=== PATIENT | female | born 1995 | race Caucasian/White ===

== ENCOUNTER 2016-08-17 12:37 | Emergency (ER) | payer OTHER, MEDICAID ==
[2016-08-17] MEDS ORDERED: ONDANSETRON 4 MG TAB.RAPDIS PO ONE (14:06)
[2016-08-17] MEDS ORDERED: NORMAL SALINE 1000 ML 1,000 ML IV ONE (14:06)
--- NOTE | 2016-08-17 14:07 | ER Document Report ---
ED Medical Screen (RME) - General Chief Complaint: Vomiting Stated Complaint: VOMITING,HEAD PAIN TRAVEL OUTSIDE OF THE [place] IN LAST 30 DAYS: No - HPI Notes: 08/17/16 14:07 Nausea vomiting abdominal pain. States son 7 months at home has similar symptoms. 08/17/16 14:07 - Related Data Allergies/Adverse Reactions: No Known Allergies Allergy (Verified 08/17/16 12:55) Past Medical History Renal/ Medical History: Denies: Hx Peritoneal Dialysis - Immunizations Hx Diphtheria, Pertussis, Tetanus Vaccination: Yes Review of Systems - Review of Systems Gastrointestinal: Abdominal pain, Nausea, Vomiting Physical Exam - Vital signs Vitals: Temp Pulse Resp BP Pulse Ox 98.2 F 106 H 14 118/72 98 08/17/16 12:55 08/17/16 12:55 08/17/16 12:55 08/17/16 12:55 08/17/16 12:55 - Respiratory Respiratory status: No respiratory distress Chest status: Nontender Breath sounds: Normal Course - Vital Signs Vital signs: Temp Pulse Resp BP Pulse Ox 98.2 F 106 H 14 118/72 98 08/17/16 12:55 08/17/16 12:55 08/17/16 12:55 08/17/16 12:55 08/17/16 12:55
[2016-08-17] MEDS ORDERED: DIPHENHYDRAMINE HCL 50 MG/ML VIAL IV ONE (14:44)
[2016-08-17] MEDS ORDERED: METOCLOPRAMIDE HCL INJ/PF 10 MG/2 ML SDV IV ONE (14:44)
--- NOTE | 2016-08-17 14:52 | ER Document Report ---
ED General - General Chief Complaint: Vomiting Stated Complaint: VOMITING,HEAD PAIN Time Seen by Provider: 08/17/16 14:07 Mode of Arrival: Ambulatory Information source: Patient Notes: 21-year-old female presents to the emergency room with nausea, vomiting and watery diarrhea. Patient states her 7-month-old had similar symptoms 3 days ago when she started developing symptoms 2 days ago. Patient denies any fever, abdominal pain, blood in the stool. His cough, shortness of breath, chest pain or dysuria TRAVEL OUTSIDE OF THE [place] IN LAST 30 DAYS: No - HPI Onset: Last week Onset/Duration: Gradual Quality of pain: Cramping Severity: None Pain Level: Denies Associated symptoms: denies: Chills, Fever, Shortness of breath Exacerbated by: Denies Relieved by: Denies Similar symptoms previously: No Recently seen / treated by doctor: No - Related Data Allergies/Adverse Reactions: No Known Allergies Allergy (Verified 08/17/16 12:55) Past Medical History - General Information source: Patient - Social History Smoking Status: Never Smoker Cigarette use (# per day): No Chew tobacco use (# tins/day): No Frequency of alcohol use: None Drug Abuse: None Lives with: Family Family History: Reviewed & Not Pertinent Patient has suicidal ideation: No Patient has homicidal ideation: No - Medical History Medical History: Negative Renal/ Medical History: Denies: Hx Peritoneal Dialysis Surgical Hx: Negative - Immunizations Hx Diphtheria, Pertussis, Tetanus Vaccination: Yes Review of Systems - Review of Systems Constitutional: denies: Chills, Fever EENT: No symptoms reported Cardiovascular: No symptoms reported Respiratory: No symptoms reported Gastrointestinal: See HPI, Diarrhea, Nausea, Vomiting. denies: Abdominal pain, Constipation, Blood in vomit, Fecal incontinence Genitourinary: No symptoms reported Female Genitourinary: No symptoms reported Musculoskeletal: No symptoms reported Skin: No symptoms reported Hematologic/Lymphatic: No symptoms reported Neurological/Psychological: No symptoms reported Physical Exam - Vital signs Vitals: Temp Pulse Resp BP Pulse Ox 98.2 F 106 H 14 118/72 98 08/17/16 12:55 08/17/16 12:55 08/17/16 12:55 08/17/16 12:55 08/17/16 12:55 Notes: Physical exam: GENERAL: 1-year-old female, alert and oriented 3, no acute distress HEAD: Atraumatic, normocephalic. EYES: Pupils equal round and reactive to light, extraocular movements intact, sclera anicteric, conjunctiva are normal. ENT: TMs normal, nares patent, oropharynx clear without exudates. Moist mucous membranes. NECK: Normal range of motion, supple without lymphadenopathy or JVD. LUNGS: Breath sounds clear to auscultation bilaterally and equal. No wheezes rales or rhonchi. HEART: Regular rate and rhythm without murmurs, rubs or gallops. ABDOMEN: Soft, normoactive bowel sounds. No tenderness to palpation. No guarding, no rebound. No masses appreciated. EXTREMITIES: Normal range of motion, no pitting or edema. No clubbing or cyanosis. NEUROLOGICAL: Cranial nerves II through XII grossly intact. Normal speech, normal gait. PSYCH: Normal mood, normal affect. SKIN: Warm, Dry, normal turgor, no rashes or lesions noted. Course - Re-evaluation Re-evalutation: 08/17/16 17:33 Patient given IV fluids, Reglan, Benadryl. She is feeling much better. - Vital Signs Vital signs: Temp Pulse Resp BP Pulse Ox 98.2 F 98 18 111/68 100 08/17/16 12:55 08/17/16 17:29 08/17/16 17:29 08/17/16 17:29 08/17/16 17:29 - Laboratory Result Diagrams: 08/17/16 14:16 08/17/16 14:16 Laboratory results interpreted by me: 08/17/16 14:16 WBC 10.6 H Seg Neutrophils % 89.1 H Lymphocytes % 7.2 L Absolute Neutrophils 9.4 H Discharge - Discharge Clinical Impression: vomiting with nausea Condition: Stable Instructions: Nausea or Vomiting, Nonspecific ([facility]), Reglan ([facility]) Additional Instructions: Recommendations: Take medicine as prescribed for nausea and vomiting. Drink small amounts of fluid often, advance diet slowly. Return to the emergency room for worsening vomiting, inability to tolerate fluids, feeling faint, or concerns it or getting worse. Follow-up with your physician within the next two days. If you are unable to get inn to see your physician, return to the ER for evaulation. Prescriptions: Metoclopramide HCl [Reglan 10 mg Tablet] 1 - 2 tab PO ASDIR PRN #25 tablet PRN Reason:
[2016-08-17 14:53] LABS: ABSOLUTE EOSINOPHILS # (AUTO) 0.1 10^3/uL (0.0-0.6); ABSOLUTE LYMPHOCYTES (AUTO) 0.8 10^3/uL (0.5-4.7); ABSOLUTE MONOCYTES (AUTO) 0.3 10^3/uL (0.1-1.4); ABSOLUTE NEUT (AUTO) 9.4 10^3/uL (1.7-8.2); BASOPHILS % (AUTO) 0.2 % (0-2); EOSINOPHILS % (AUTO) 0.5 % (0-6); HEMATOCRIT 44.2 % (36.0-47.0); HEMOGLOBIN 14.6 g/dL (12.0-15.5); HGB HCT DIFFERENCE -0.4; LYMPHOCYTES % (AUTO) 7.2 % (13-45); MEAN CORPUSCULAR HEMOGLOBIN 28.4 pg (27.0-33.4); MEAN CORPUSCULAR VOLUME 86 fl (80-97); RED BLOOD COUNT 5.12 10^6/uL (3.72-5.28); RED CELL DISTRIBUTION WIDTH 13.5 % (11.5-14.0); SEGMENTED NEUTROPHILS % (AUTO) 89.1 % (42-78); WHITE BLOOD COUNT 10.6 10^3/uL (4.0-10.5)
--- NOTE | 2016-08-17 14:59 | RADIOLOGY REPORT (SQ) ---
EXAM DESCRIPTION: ACUTE ABDOMEN SERIES COMPLETED DATE/TIME: 08/17/2016 2:41 pm REASON FOR STUDY: n/v/d COMPARISON: 02/06/2016 NUMBER OF VIEWS: Three views. TECHNIQUE: PA chest, supine abdomen and upright/decubitus abdomen radiographic images acquired. LIMITATIONS: None. FINDINGS: CHEST: Lungs clear of infiltrates. FREE AIR: None. No abnormal gas collections. BOWEL GAS PATTERN: Few scattered small bowel loops with air fluid levels. No distended large or small bowel loops. CALCIFICATIONS: No suspicious calcifications. HARDWARE: None in the abdomen. SOFT TISSUES: No gross mass or suggestion of organomegaly. BONES: No acute fracture. No worrisome bone lesions. OTHER: No other significant finding. IMPRESSION: NONSPECIFIC BOWEL GAS PATTERN WITHOUT EVIDENCE FOR OBSTRUCTION. TECHNICAL DOCUMENTATION: JOB ID: [id number] [employer]- All Rights Reserved
[2016-08-17 15:10] LABS: ANION GAP 13 (5-19); BLOOD UREA NITROGEN 18 mg/dL (7-20); CALCIUM 9.2 mg/dL (8.4-10.2); CARBON DIOXIDE 23 mmol/L (22-30); CHLORIDE 103 mmol/L (98-107); CREATININE RESULT 0.71 mg/dL (0.52-1.25); GLUCOSE 94 mg/dL (75-110); POTASSIUM 4.9 mmol/L (3.6-5.0); SODIUM 139.4 mmol/L (137-145)
[2016-08-17] MEDS ORDERED: NORMAL SALINE 1000 ML 1,000 ML IV PRN (16:21)
[2016-08-17 17:05] LABS: APPEARANCE,URINE CLEAR; BILIRUBIN,URINE NEGATIVE (NEGATIVE); GLUCOSE, URINE NEGATIVE (NEGATIVE); KETONES,URINE NEGATIVE (NEGATIVE); LEUKOCYTE ESTERASE,URINE NEGATIVE (NEGATIVE); NITRITE,URINE NEGATIVE (NEGATIVE); PROTEIN,URINE NEGATIVE (NEGATIVE); URINE SPECIFIC GRAVITY 1.013; UROBILINOGEN,URINE NEGATIVE mg/dL (<2.0)
[2016-08-17 17:13] LABS: RBC,URINE NONE SEEN /HPF; WBC,URINE 0-1 /HPF
[2016-08-17 17:14] LABS: BACTERIA,URINE TRACE /HPF
[2016-08-17 17:31] VITALS: BP 111/68
== END 2016-08-17 17:43 | disposition home or self-care (01) ==
LOC: ER 12:37
DX: R11.2 Nausea with vomiting, unspecified (principal); R19.7 Diarrhea, unspecified; R51 Headache
CPT/HCPCS: 99284; 96374; 96375; 36415; 84702; 85025; 80048; 81001; 74022; J1200; J2765; J7030

== ENCOUNTER 2017-03-09 01:16 | Emergency (ER) | payer OTHER, MEDICAID ==
[2017-03-09 01:29] VITALS: BP 122/74
[2017-03-09] MEDS ORDERED: ONDANSETRON HCL INJ/PF 4 MG/2 ML SDV IV ONE (02:19)
[2017-03-09] MEDS ORDERED: ACETAMINOPHEN 325 MG TABLET PO ONE (02:19)
[2017-03-09] MEDS ORDERED: NORMAL SALINE 1000 ML 1,000 ML IV ONE (02:19)
[2017-03-09 03:02] LABS: ANION GAP 13 (5-19); BLOOD UREA NITROGEN 8 mg/dL (7-20); CALCIUM 9.6 mg/dL (8.4-10.2); CARBON DIOXIDE 22 mmol/L (22-30); CHLORIDE 106 mmol/L (98-107); GLUCOSE 89 mg/dL (75-110); POTASSIUM 3.9 mmol/L (3.6-5.0); SODIUM 140.7 mmol/L (137-145)
--- NOTE | 2017-03-09 03:42 | RADIOLOGY REPORT (SQ) ---
EXAM DESCRIPTION: First trimester obstruction ultrasound. CLINICAL HISTORY: 22 years Female, abdominal pain in COMPARISON: None. TECHNIQUE: Complete transabdominal first trimester obstetrical ultrasound. FINDINGS: Uterus measures 11.00 x 8.4 x 8.4 cm. Within the endometrial canal there is a gestational sac. The crown-rump length is 3.1 cm compatible with an estimated gestational age of 10 weeks, 0 days. The gestational sac has a grossly normal appearance. cardiac activity of 150 bpm. No myometrial masses. Cervical length of 3.3 cm. No free pelvic fluid identified. The right ovary is not identified. The left ovary measures 5.0 x 3.0 x 3.3 cm. Limited color and spectral Doppler images demonstrate flow within the left ovary. IMPRESSION: Single live intrauterine with estimated gestational age of 10 weeks, 0 days. heart rate of 150 bpm.
--- NOTE | 2017-03-09 04:38 | ER Document Report ---
ED General - General Chief Complaint: Abdominal Pain Stated Complaint: ABDOMINAL PAIN Time Seen by Provider: 03/09/17 02:14 Notes: Patient is 22-year-old female. She is approximately 12 weeks . She has seen POSTDOCTORAL FELLOW doctor but has not yet had an ultrasound to confirm IUP status. She has had some vomiting throughout her . Over last day or 2 she has noticed some cramping type pain in her bilateral lower abdomen. No abnormal discharge or bleeding. She is Rh-. She denies any fevers. Denies diarrhea. She has no other complaints at this time. TRAVEL OUTSIDE OF THE [place] IN LAST 30 DAYS: No - Related Data Allergies/Adverse Reactions: No Known Allergies Allergy (Verified 03/09/17 01:25) Past Medical History - Social History Smoking Status: Never Smoker Frequency of alcohol use: None Drug Abuse: None Family History: Reviewed & Not Pertinent Patient has suicidal ideation: No Patient has homicidal ideation: No Renal/ Medical History: Denies: Hx Peritoneal Dialysis - Immunizations Hx Diphtheria, Pertussis, Tetanus Vaccination: Yes Review of Systems - Review of Systems Notes: My Normal Review Basic REVIEW OF SYSTEMS: CONSTITUTIONAL : Denies fever, chills, or sweats. Denies recent illness. EENT: Denies eye, ear, throat, or mouth pain or symptoms. Denies nasal or sinus congestion. RESPIRATORY: Denies cough, cold, or chest congestion. Denies shortness of breath, difficulty breathing, or wheezing. GASTROINTESTINAL: Lateral lower Rampey abdominal pain. Denies nausea, vomiting , or diarrhea. Denies constipation. Last BM: GENITOURINARY: Denies difficulty urinating, painful urination, burning, frequency, or blood in urine. FEMALE GENITOURINARY: Denies vaginal bleeding, abnormal or irregular periods. LMP: Currently MUSCULOSKELETAL: Denies neck or back pain or joint pain or swelling. SKIN: Denies rash or skin lesions. NEUROLOGICAL: Denies altered mental status or loss of consciousness. Has a headache. Denies weakness or paralysis or loss of use of either side. Denies problems with gait or speech. Denies sensory or motor loss. ALL OTHER SYSTEMS REVIEWED AND NEGATIVE. Physical Exam - Vital signs Vitals: Temp Pulse Resp BP Pulse Ox 97.7 F 95 18 122/74 98 03/09/17 01:21 03/09/17 01:21 03/09/17 01:21 03/09/17 01:21 03/09/17 01:21 - Notes Notes: General Appearance: Well nourished, alert, cooperative, no acute distress, no obvious discomfort. Well appearing. Vitals: reviewed, See vital signs table. Eyes: PERRL, EOMI, Conjuctiva clear Lungs: No wheezing, No rales, No rhonci, No accessory muscle use, good air exchange bilaterally. Heart: Normal rate, Regular rythm, No murmur, no rub Abdomen: Normal BS, soft, No rigidity, No reproducible abdominal tenderness to palpation, No guarding, no rebound, Extremities: strength 5/5 in all extremities, good pulses in all extremities, no swelling or tenderness in the extremities, no edema. Skin: warm, dry, appropriate color, no rash Neuro: speech clear, oriented x 3, normal affect, responds appropriately to questions. Course - Re-evaluation Re-evalutation: 03/10/17 05:24 Patient is feeling much improved after IV fluids. She does have a new tract infection. This may be contributing to the cramping that she is having. She has no current bleeding. She looks well. I feel she is safe to be discharged home. We will place her on antibiotic for UTI. I strongly encouraged her follow-up closely with her freezer machine operator. Patient encouraged to return to ER if she has worsening pain, any vaginal bleeding, or she feels unwell. Patient agrees with plan and will be discharged home. Dictation of this chart was performed using voice recognition software; therefore, there may be some unintended grammatical errors. - Vital Signs Vital signs: Temp Pulse Resp BP Pulse Ox 97.7 F 95 18 122/74 98 03/09/17 01:21 03/09/17 01:21 03/09/17 01:21 03/09/17 01:21 03/09/17 01:21 - Laboratory Result Diagrams: 03/09/17 02:30 Laboratory results interpreted by me: 03/09/17 03:39 Urine Ketones TRACE H Urine Nitrite POSITIVE H Urine Urobilinogen 2.0 H Ur Leukocyte Esterase TRACE H Discharge - Discharge Clinical Impression: Abdominal pain during Qualifiers: Trimester: first trimester Qualified Code(s): O26.891 - Other specified related conditions, first trimester Vomiting Qualifiers: Vomiting type: unspecified Vomiting Intractability: non-intractable Nausea presence: with nausea Qualified Code(s): R11.2 - Nausea with vomiting, unspecified UTI (urinary tract infection) Qualifiers: Urinary tract infection type: site unspecified Hematuria presence: without hematuria Qualified Code(s): N39.0 - Urinary tract infection, site not specified Condition: Good Disposition: HOME, SELF-CARE Additional Instructions: Please take the antibiotic as prescribed. please return to the ER immediately if you have fevers, worsening pain, intractable vomiting, vaginal bleeding, or feel unwell. Plesae follow up with your OB doctor in 3-5 days. I have prescribed Reglan. This is a nausea medicine that is safe in . Please take a vitamin every day. Prescriptions: Metoclopramide HCl [Reglan 10 mg Tablet] 1 tab PO ASDIR PRN #25 tablet PRN Reason: Nitrofurantoin/Nitrofuran Mac [Macrobid 100 mg Capsule] 1 tab PO BID #20 capsule
[2017-03-09 04:46] LABS: APPEARANCE,URINE SLIGHTLY-CLOUDY; BILIRUBIN,URINE NEGATIVE (NEGATIVE); COLOR,URINE YELLOW; GLUCOSE, URINE NEGATIVE (NEGATIVE); KETONES,URINE TRACE mg/dL (NEGATIVE); LEUKOCYTE ESTERASE,URINE TRACE (NEGATIVE); NITRITE,URINE POSITIVE (NEGATIVE); PROTEIN,URINE NEGATIVE (NEGATIVE); URINE SPECIFIC GRAVITY 1.028
[2017-03-09] MEDS ORDERED: NITROFURANTOIN MONOHYD/M-CRYST 100 MG CAPSULE PO ONE (04:58)
== END 2017-03-09 05:02 | disposition home or self-care (01) ==
LOC: ER 01:16
DX: O26.891 Other specified pregnancy related conditions, first trimester (principal); R10.9 Unspecified abdominal pain; O23.41 Unspecified infection of urinary tract in pregnancy, first trimester; O21.9 Vomiting of pregnancy, unspecified; Z3A.12 12 weeks gestation of pregnancy
CPT/HCPCS: 99284; 96374; 36415; 87086; 87088; 80048; 81001; 87186; 76817; 93976; J2405; J7030

== ENCOUNTER 2017-04-29 00:05 | Emergency (ER) | payer OTHER, MEDICAID ==
[2017-04-29 00:14] VITALS: BP 116/68
[2017-04-29] MEDS ORDERED: ACETAMINOPHEN 325 MG TABLET PO ONE (01:34)
--- NOTE | 2017-04-29 01:39 | ER Document Report ---
ED General - General Chief Complaint: Knee Pain Stated Complaint: KNEE PAIN Time Seen by Provider: 04/29/17 01:24 Notes: Patient is a pleasant 22-year-old female who presents with complaint of pain in her left knee. She says the pain is just superior to the patella. She says she has had pain off and on both her left knee and right knee for many years. She says the left knee is usually worse. She says over the last couple weeks it has become more painful. She is currently . She says she has noticed that she is gaining weight with the pain is been worse. She also has a 1-year-old at home that she is "currently chasing around the house". She denies any injuries or trauma. No fevers. No redness to the knee. Patient's other complaint is that she had dysuria several days ago. She took [id number] Azo and the symptoms have gone away but she is unsure if actually treated the urinary tract infection. She has not had any fevers or vomiting. No pain in her abdomen. No abnormal vaginal discharge or bleeding. Patient's final complaint is that she had a small ingrown hair in the suprapubic region. She removed in 1 to make sure that the site looks okay. She says she is not currently taking multivitamins or vitamins on a daily basis because they make her feel nauseous. I did talk to her length about the importance of taking vitamins as it contributes to preventing the development of neuro tube defects. TRAVEL OUTSIDE OF THE [place] IN LAST 30 DAYS: No - Related Data Allergies/Adverse Reactions: No Known Allergies Allergy (Verified 03/09/17 01:25) Past Medical History - Social History Smoking Status: Unknown if Ever Smoked Frequency of alcohol use: None Drug Abuse: None Family History: Reviewed & Not Pertinent Renal/ Medical History: Denies: Hx Peritoneal Dialysis - Immunizations Hx Diphtheria, Pertussis, Tetanus Vaccination: Yes Review of Systems - Review of Systems Notes: My Normal Review Basic REVIEW OF SYSTEMS: CONSTITUTIONAL : Denies fever, chills, or sweats. Denies recent illness. RESPIRATORY: Denies cough, cold, or chest congestion. Denies shortness of breath, difficulty breathing, or wheezing. GASTROINTESTINAL: Denies abdominal pain. Denies nausea, vomiting, or diarrhea. GENITOURINARY: Had some dysuria FEMALE GENITOURINARY: Denies vaginal bleeding, abnormal or irregular periods. LMP: currently MUSCULOSKELETAL: left knee pain SKIN: Denies rash or skin lesions. NEUROLOGICAL: Denies altered mental status or loss of consciousness. Denies headache. Denies weakness or paralysis or loss of use of either side. Denies problems with gait or speech. Denies sensory or motor loss. ALL OTHER SYSTEMS REVIEWED AND NEGATIVE. Physical Exam - Vital signs Vitals: Temp Pulse Resp BP Pulse Ox 98.0 F 76 16 116/68 100 04/29/17 00:09 04/29/17 00:09 04/29/17 00:09 04/29/17 00:09 04/29/17 00:09 - Notes Notes: General Appearance: Well nourished, alert, cooperative, no acute distress, mild obvious discomfort. Vitals: reviewed, See vital signs table. Extremities: strength 5/5 in all extremities, good pulses in all extremities, some tenderness to palpation over the suprapatellar ligament. The remainder of the knee is completely nontender. No significant swelling to the knee with the exception of possibly some very mild swelling just superior to the patella.. No redness. No warmth. Skin: warm, dry, appropriate color, no rash. Patient has a small area where the patient removed an ingrown hair over suprapubic region. There is no spreading or surrounding redness or fluctuance or sign of developing abscess. Neuro: speech clear, oriented x 3, normal affect, responds appropriately to questions. Course - Re-evaluation Re-evalutation: 04/29/17 06:47 Patient's knee pain seems consistent with maybe suprapatellar tendinitis. Pain is only over the suprapatellar tendon. Appears that this is a chronic ongoing pain is worsened since she become . Told her to take Tylenol for pain and I did give her crutches. I will have her follow-up with orthopedist. She also had some dysuria the last couple days. Urinalysis does show positive nitrites and therefore placed on Keflex. I talked her the importance of taking vitamins. I informed her to return to ER immediately if she has worsening pain, redness or increased swelling to the knee, fevers, vomiting, or she feels unwell. Patient agrees with plan will be discharged home. Dictation of this chart was performed using voice recognition software; therefore, there may be some unintended grammatical errors. - Vital Signs Vital signs: Temp Pulse Resp BP Pulse Ox 98.0 F 76 16 116/68 100 04/29/17 00:09 04/29/17 00:09 04/29/17 00:09 04/29/17 00:09 04/29/17 00:09 - Laboratory Laboratory results interpreted by me: 04/29/17 01:50 Urine Nitrite POSITIVE H Urine Urobilinogen 2.0 H Discharge - Discharge Clinical Impression: Knee pain, left Qualifiers: Chronicity: unspecified Qualified Code(s): M25.562 - Pain in left knee UTI (urinary tract infection) Qualifiers: Urinary tract infection type: site unspecified Hematuria presence: without hematuria Qualified Code(s): N39.0 - Urinary tract infection, site not specified Condition: Good Disposition: HOME, SELF-CARE Additional Instructions: Please take the antibiotic as prescribed for the urinary tract infection. please follow up closely with your OB doctor in 3-4 days for reevaluation and recheck of your urine to make sure it is improving. please use the crutches as often as possible to give your knee a rest. Please take Tylenol for pain. Please follow up with your doctor in 1 week for reevaluation of your knee. Please take vitamins. Please get a neoprene knee brace from the store and wear it for support of your knee. If your knee continues to bother you I have included the number to Dr. Hayden, orthopedist, for close follow up appointment. Prescriptions: Cephalexin Monohydrate [Keflex 500 mg Capsule] 500 mg PO BID 5 Days #10 capsule Referrals: SHILOH PACE MD [Primary Care Provider] - Follow up in 3-5 days WARREN POMPA MD [ACTIVE STAFF] - Follow up in 1 week
[2017-04-29 02:12] LABS: APPEARANCE,URINE SLIGHTLY HAZY; BILIRUBIN,URINE NEGATIVE (NEGATIVE); COLOR,URINE YELLOW; GLUCOSE, URINE NEGATIVE (NEGATIVE); KETONES,URINE NEGATIVE (NEGATIVE); LEUKOCYTE ESTERASE,URINE NEGATIVE (NEGATIVE); NITRITE,URINE POSITIVE (NEGATIVE); PROTEIN,URINE NEGATIVE (NEGATIVE); URINE SPECIFIC GRAVITY 1.021
[2017-04-29] MEDS ORDERED: CEPHALEXIN 500 MG CAPSULE PO ONE (02:18)
== END 2017-04-29 03:00 | disposition home or self-care (01) ==
LOC: ER 00:05
DX: O99.89 Other specified diseases and conditions complicating pregnancy, childbirth and the puerperium (principal); M25.562 Pain in left knee; O23.40 Unspecified infection of urinary tract in pregnancy, unspecified trimester; Z3A.00 Weeks of gestation of pregnancy not specified
CPT/HCPCS: 81001; 87086; 87088; 87186; 99283

== ENCOUNTER 2017-05-13 22:46 | Emergency (ER) | payer OTHER, MEDICAID ==
[2017-05-13 22:51] VITALS: BP 100/57
--- NOTE | 2017-05-13 23:42 | ER Document Report ---
ED Allergic Reaction - General Chief Complaint: Allergic Reaction Stated Complaint: POSSIBLE ALLERGIC REACTION Time Seen by Provider: 05/13/17 23:31 Mode of Arrival: Ambulatory TRAVEL OUTSIDE OF THE [place] IN LAST 30 DAYS: No - HPI Patient complains to provider of: RASH Notes: Patient is here with complaints of rash. States that the rash is been present for the last 4 days. It is itchy. It is located on her abdomen back arms and legs. She denies any new soaps, detergents, lotions, medications. No new foods. She is 19 weeks . She denies any complications or complaints at this time. She does have occasional nausea vomiting associated with her , this has not changed. She denies any fever. No sore throat. No cough. No abdominal pain. She did recently stay in a hotel but states that no one else that stayed in hotel has similar symptoms. No one else that she has been around has similar rash. - Related Data Allergies/Adverse Reactions: No Known Allergies Allergy (Verified 03/09/17 01:25) Past Medical History - Social History Smoking Status: Unknown if Ever Smoked Family History: Reviewed & Not Pertinent Patient has suicidal ideation: No Patient has homicidal ideation: No Renal/ Medical History: Denies: Hx Peritoneal Dialysis - Immunizations Hx Diphtheria, Pertussis, Tetanus Vaccination: Yes Review of Systems - Review of Systems -: Yes All other systems reviewed and negative Physical Exam - Vital signs Vitals: Temp Pulse Resp BP Pulse Ox 97.7 F 84 16 100/57 L 99 05/13/17 22:50 05/13/17 22:50 05/13/17 22:50 05/13/17 22:50 05/13/17 22:50 - Notes Notes: GENERAL: alert, cooperative, nontoxic, no distress. HEAD: normocephalic, atraumatic EYES: conjunctiva pink without discharge, no external redness or swelling. EARS: no external swelling, no external redness NOSE: atraumatic, no external swelling MOUTH/THROAT: mucous membranes moist and pink NECK: soft, supple, full range of motion, no meningismus. CHEST: no distress, lungs clear and equal throughout. No wheezing, rales, rhonchi. CARDIAC: regular rate and rhythm, no murmur, normal capillary refill, normal pulses. BACK: full range of motion, no CVA tenderness. EXTREMITIES: full range of motion of all extremities. No redness, no swelling. NEURO: alert and oriented 3, no focal deficits, full range of motion of all extremities. PYSCH: appropriate mood, affect. Patient is cooperative. SKIN: pink, warm, dry, nonspecific papular rash with excoriated areas from scratching to the abdomen, back, arms, upper legs. No surrounding erythema. No vesicles. No petechiae. Course - Re-evaluation Re-evalutation: 05/13/17 23:40 Patient is nontoxic appearing with stable vitals. Patient is a very nonspecific itchy rash to her abdomen, arms, legs. Looks to be possibly allergic in nature. She will be discharged home with instructions to take Benadryl as needed for itching. Follow-up with her WOOD HEEL FLAP RUBBER if not improving in the next 3-5 days, and to follow-up sooner for worsening rash, high fever, difficulty breathing or swallowing, persistent vomiting, abdominal pain, or for any further concerns. - Vital Signs Vital signs: Temp Pulse Resp BP Pulse Ox 97.7 F 84 16 100/57 L 99 05/13/17 22:50 05/13/17 22:50 05/13/17 22:50 05/13/17 22:50 05/13/17 22:50 Discharge - Discharge Clinical Impression: Dermatitis Condition: Stable Disposition: HOME, SELF-CARE Instructions: Topical Steroid Cream or Ointment ([facility]) Additional Instructions: Take [id number] Benadryl as needed for itching. Follow-up with your OB/ BIOLOGY LECTURER if not better in the next 3-5 days. Follow-up sooner for worsening rash, high fever, difficulty breathing or swallowing, abdominal pain, persistent vomiting, or for any further concerns.
== END 2017-05-13 23:46 | disposition home or self-care (01) ==
LOC: ER 22:46
DX: O26.92 Pregnancy related conditions, unspecified, second trimester (principal); L30.9 Dermatitis, unspecified; Z3A.19 19 weeks gestation of pregnancy
CPT/HCPCS: 99283

== ENCOUNTER 2017-06-10 16:26 | Emergency (ER) | payer MEDICAID ==
[2017-06-10 16:32] VITALS: BP 111/62
--- NOTE | 2017-06-10 16:46 | ER Document Report ---
ED Medical Screen (RME) - General Chief Complaint: Rash Stated Complaint: POSSIBLE RASH Time Seen by Provider: 06/10/17 16:42 Notes: 22-year-old female, 23 weeks , presents from her OB office with concern for a possible pelvic fracture and 1 month of a pruritic full-body rash. Patient said she had a fall last week and now hears crunching when she walks. Patient has tried calamine lotion, cortisone cream, permethrin and Benadryl without much relief of her itchy rash. PE: NAD. Non-tender abdomen. Unable to visualize rash in PIT. I have greeted and performed a rapid initial assessment of this patient. A comprehensive ED assessment and evaluation of the patient, analysis of test results and completion of the medical decision making process will be conducted by additional ED providers. TRAVEL OUTSIDE OF THE [place] IN LAST 30 DAYS: No - Related Data Allergies/Adverse Reactions: No Known Allergies Allergy (Verified 03/09/17 01:25) Past Medical History - Social History Chew tobacco use (# tins/day): No Frequency of alcohol use: None Drug Abuse: None Renal/ Medical History: Denies: Hx Peritoneal Dialysis - Immunizations Hx Diphtheria, Pertussis, Tetanus Vaccination: Yes Physical Exam - Vital signs Vitals: Temp Pulse Resp BP Pulse Ox 97.9 F 92 16 111/62 98 06/10/17 16:30 06/10/17 16:30 06/10/17 16:30 06/10/17 16:30 06/10/17 16:30 Course - Vital Signs Vital signs: Temp Pulse Resp BP Pulse Ox 97.9 F 92 16 111/62 98 06/10/17 16:30 06/10/17 16:30 06/10/17 16:30 06/10/17 16:30 06/10/17 16:30 Doctor's Discharge - Discharge Referrals: EVELIN OWENS MD [Primary Care Provider] - Follow up as needed
[2017-06-10 17:52] LABS: APPEARANCE,URINE CLOUDY; BILIRUBIN,URINE NEGATIVE (NEGATIVE); GLUCOSE, URINE NEGATIVE (NEGATIVE); KETONES,URINE NEGATIVE (NEGATIVE); LEUKOCYTE ESTERASE,URINE MODERATE (NEGATIVE); NITRITE,URINE NEGATIVE (NEGATIVE); PROTEIN,URINE 30 mg/dL (NEGATIVE); URINE SPECIFIC GRAVITY 1.034
[2017-06-10 17:53] LABS: COLOR,URINE DARK YELLOW
[2017-06-10 17:57] LABS: ALANINE AMINOTRANSFERASE 25 U/L (9-52); ALBUMIN 3.5 g/dL (3.5-5.0); ALKALINE PHOSPHATASE 68 U/L (38-126); ANION GAP 7 (5-19); ASPARTATE AMINO TRANSFERASE 11 U/L (14-36); BILIRUBIN,DIRECT 0.2 mg/dL (0.0-0.4); BILIRUBIN,TOTAL 0.2 mg/dL (0.2-1.3); BLOOD UREA NITROGEN 8 mg/dL (7-20); CALCIUM 9.4 mg/dL (8.4-10.2); CARBON DIOXIDE 26 mmol/L (22-30); CHLORIDE 104 mmol/L (98-107); GLUCOSE 87 mg/dL (75-110); POTASSIUM 4.7 mmol/L (3.6-5.0); SODIUM 136.9 mmol/L (137-145); TOTAL PROTEIN 6.4 g/dL (6.3-8.2)
[2017-06-10] MEDS ORDERED: CLINDAMYCIN HCL 150 MG CAPSULE PO ONE (19:01)
--- NOTE | 2017-06-10 19:06 | ER Document Report ---
ED General - General Chief Complaint: Rash Stated Complaint: POSSIBLE RASH Time Seen by Provider: 06/10/17 16:42 Notes: Patient is a 22-year-old female who presents with 2 complaints. Her first complaint is a diffuse, painful, pruritic rash over her back, buttock, bilateral forearms and groin region. Rash is described as being a burning, throbbing, itching pain. Nothing improves or worsens the pain. Patient states that she was treated for possible scabies with permethrin cream and this did not improve. She was also treated for possible allergic reaction and likewise this did not improve her symptoms. She describes the areas as having a pustule and then they typically open and scab over. She denies a history of similar symptoms in the past. She denies any associated fever or constitutional symptoms. She also complains of intermittent cracking or popping when she moves around in the region of her pubic symphysis. She states that there is an associated mild, throbbing, intermittent pain. She denies any difficulty walking, ranging her hips or standing. She has no history of similar symptoms in the past. She was referred to the emergency department today by the health department for further assessment. TRAVEL OUTSIDE OF THE [place] IN LAST 30 DAYS: No - Related Data Allergies/Adverse Reactions: No Known Allergies Allergy (Verified 03/09/17 01:25) Past Medical History - General Information source: Patient - Social History Smoking Status: Never Smoker Chew tobacco use (# tins/day): No Frequency of alcohol use: None Drug Abuse: None Lives with: Family Family History: Reviewed & Not Pertinent Patient has suicidal ideation: No Patient has homicidal ideation: No Renal/ Medical History: Denies: Hx Peritoneal Dialysis - Immunizations Hx Diphtheria, Pertussis, Tetanus Vaccination: Yes Review of Systems - Review of Systems Notes: Constitutional: Negative for fever. HENT: Negative for sore throat. Eyes: Negative for visual changes. Cardiovascular: Negative for chest pain. Respiratory: Negative for shortness of breath. Gastrointestinal: Negative for abdominal pain, vomiting or diarrhea. Genitourinary: Negative for dysuria. Musculoskeletal: Positive for pubic symphysis pain Skin: Positive for rash. Neurological: Negative for headaches, weakness or numbness. 10 point ROS negative except as marked above and in HPI. Physical Exam - Vital signs Vitals: Temp Pulse Resp BP Pulse Ox 97.9 F 92 16 111/62 98 06/10/17 16:30 06/10/17 16:30 06/10/17 16:30 06/10/17 16:30 06/10/17 16:30 Interpretation: Normal Notes: PHYSICAL EXAMINATION: GENERAL: Well-appearing, well-nourished and in no acute distress. HEAD: Atraumatic, normocephalic. EYES: Pupils equal round and reactive to light, extraocular movements intact, sclera anicteric, conjunctiva are normal. ENT: nares patent, oropharynx clear without exudates. Moist mucous membranes. NECK: Normal range of motion, supple without lymphadenopathy LUNGS: Breath sounds clear to auscultation bilaterally and equal. No wheezes rales or rhonchi. HEART: Regular rate and rhythm without murmurs ABDOMEN: Soft, nontender, normoactive bowel sounds. No guarding, no rebound. No masses appreciated. EXTREMITIES: Normal range of motion, no pitting or edema. No cyanosis. NEUROLOGICAL: No focal neurological deficits. Moves all extremities spontaneously and on command. PSYCH: Normal mood, normal affect. SKIN: Warm, Dry, normal turgor, multiple areas of scabbed over lesions over the forearms, several pustular regions over the bilateral buttocks and low back Course - Re-evaluation Re-evalutation: 06/10/17 19:05 Patient presents with signs and symptoms most consistent with a diffuse staph infection with multiple areas of scabbed over and blistered areas. Patient is ready been treated for possible scabies as well as a possible allergic reaction without any improvement. Especially her buttock region is most consistent with small staph blisters. She will be started on clindamycin as I am unable to use trimethoprim sulfamethoxazole or doxycycline due to her . Regarding patient's pelvic pain: She seems to have some mild tenderness over her pubic symphysis. She has no limited range of motion, no pain or obvious antalgic gait. Patient has agreed to avoid x-ray imaging today. At this time will discharge with return precautions and follow-up recommendations. Verbal discharge instructions given a the bedside and opportunity for questions given. Medication warnings reviewed. Patient is in agreement with this plan and has verbalized understanding of return precautions and the need for primary care follow-up in the next 24-72 hours. - Vital Signs Vital signs: Temp Pulse Resp BP Pulse Ox 97.9 F 92 16 111/62 98 06/10/17 16:30 06/10/17 16:30 06/10/17 16:30 06/10/17 16:30 06/10/17 16:30 - Laboratory Result Diagrams: 06/10/17 17:00 Laboratory results interpreted by me: 06/10/17 06/10/17 17:00 17:00 Sodium 136.9 L AST 11 L Urine Protein 30 H Urine Urobilinogen 2.0 H Ur Leukocyte Esterase MODERATE H Discharge - Discharge Clinical Impression: Staph skin infection, Pelvic pain Condition: Good Disposition: HOME, SELF-CARE Additional Instructions: Your rash is likely due to a scattered staph infection. Please take the clindamycin that has been prescribed for the next 7 days. You may also apply topical bacitracin cream to the most severely affected areas which can be purchased [id number]. Your pelvic pain is likely secondary to some mild irritation of your pubic symphysis and is unlikely to be a fracture. We have agreed to avoid an x-ray today. Please follow-up with her OB as scheduled. Return if you develop fever, persistent vomiting, pass out, have difficulty walking, or have any other symptoms that are worrisome to you. Prescriptions: Clindamycin HCl 300 mg PO TID #21 capsule Referrals: EVELIN OWENS MD [Primary Care Provider] - Follow up as needed
== END 2017-06-10 20:31 | disposition home or self-care (01) ==
LOC: ER 16:26
DX: L08.89 Other specified local infections of the skin and subcutaneous tissue (principal); B95.8 Unspecified staphylococcus as the cause of diseases classified elsewhere
CPT/HCPCS: 99283; 36415; 80053; 81001; J3490

== ENCOUNTER → 2017-06-12 | Outpatient (CLI) | payer MEDICAID ==
--- NOTE | 2017-06-12 16:14 | RADIOLOGY REPORT (SQ) ---
EXAM DESCRIPTION: U/S OB 14+ TRNABD 1GES W/O DOP COMPLETED DATE/TIME: 06/12/2017 3:21 pm REASON FOR STUDY: ENCOUNTER FOR SUPERVISION OF OTHER NORMAL , SECOND TRIMESTER Z34.82 ENCO UNTER FOR SUPRVSN OF NORMAL , SECOND TRI COMPARISON: None. TECHNIQUE: Static and Dynamic grayscale imaging performed of gravid uterus using transabdominal appr oach. Additional selected color Doppler and spectral images recorded. All stored on PACS. LIMITATIONS: None. FINDINGS: EGA: 21 weeks 4 days JOAQUIN: 10/19/2017 EFW: 409 grams PERCENTILE: 12 FERMIN: 11.1 cm PLACENTA: Anterior GRADE: I PRESENTATION: Cephalic. ANATOMY: HEART RATE: 143 beats per minute. FOUR CHAMBER HEART: Visualized. THREE VESSEL CORD: Yes. CORD INSERTION: Visualized. KIDNEYS AND BLADDER: Visualized. Appear normal. STOMACH: Visualized. Appears normal. SPINE: Normal as visualized. BRAIN AND LATERAL VENTRICLES: Visualized. Appear normal. OTHER: No other significant finding. MATERNAL ADNEXA: Maternal ovaries not visualized. CERVICAL LENGTH: 3.4 cm. Closed. OTHER: No other significant finding. IMPRESSION: LIVING INTRAUTERINE . ESTIMATED GESTATIONAL AGE 21 weeks 4 days NO VISUALIZED ANOMALIES. Trimester of : Second trimester - 13 weeks 1 day to 27 weeks 6 days. TECHNICAL DOCUMENTATION: JOB ID: [id number] [employer]- All Rights Reserved Reading location - IP/workstation name: [email or web address]
== END ==
LOC: RAD 13:55
PROVIDERS: ATTEND Nurse Practitioner Women's Health
DX: Z34.82 Encounter for supervision of other normal pregnancy, second trimester (principal)
CPT/HCPCS: 76805

== ENCOUNTER 2017-06-23 01:08 | Emergency (ER) | payer MEDICAID ==
--- NOTE | 2017-06-23 01:49 | ER Document Report ---
ED General - General Chief Complaint: Rash Stated Complaint: SKIN IRRITATION Time Seen by Provider: 06/23/17 01:27 Notes: Patient is a 22-year-old female who is 24 weeks who presents with complaint of a rash. That is her initial complaint. She was actually seen here almost 2 weeks ago for same thing. At that time she was placed on clindamycin. She is the clindamycin is greatly improved her rash but she still has several lesions over her body and says now that she is done with the clindamycin she feels that is no longer improving. She denies any fevers. She denies any vomiting. She had a recent ultrasound which showed that the baby has had down but no complications thus far. This is her second . Her first was a normal vaginal delivery at 34 weeks. She does complain that she started having some white vaginal discharge today. She also has been urinating more. Before she was placed on clindamycin she was treated for scabies by her OB doctor. This did not improve her symptoms. TRAVEL OUTSIDE OF THE [place] IN LAST 30 DAYS: No - Related Data Allergies/Adverse Reactions: No Known Allergies Allergy (Verified 03/09/17 01:25) Past Medical History - Social History Smoking Status: Unknown if Ever Smoked Frequency of alcohol use: None Drug Abuse: None Family History: Reviewed & Not Pertinent Patient has suicidal ideation: No Patient has homicidal ideation: No Renal/ Medical History: Denies: Hx Peritoneal Dialysis - Immunizations Hx Diphtheria, Pertussis, Tetanus Vaccination: Yes Review of Systems - Review of Systems Notes: My Normal Review Basic REVIEW OF SYSTEMS: CONSTITUTIONAL : Denies fever, chills, or sweats. Denies recent illness. EENT: Denies eye, ear, throat, or mouth pain or symptoms. Denies nasal or sinus congestion. CARDIOVASCULAR: Denies chest pain. RESPIRATORY: Denies cough, cold, or chest congestion. Denies shortness of breath, difficulty breathing, or wheezing. GASTROINTESTINAL: Denies abdominal pain. Denies nausea, vomiting, or diarrhea. GENITOURINARY: Dysuria. Some urinary frequency. FEMALE GENITOURINARY: Denies vaginal bleeding. 4 weeks . Some whitish discharge. MUSCULOSKELETAL: Denies neck or back pain or joint pain or swelling. SKIN: Rash NEUROLOGICAL: Denies altered mental status or loss of consciousness. Denies headache. Denies weakness or paralysis or loss of use of either side. Denies problems with gait or speech. Denies sensory or motor loss. ALL OTHER SYSTEMS REVIEWED AND NEGATIVE. Physical Exam - Vital signs Vitals: Temp Pulse Resp BP Pulse Ox 97.3 F 92 16 118/65 98 06/23/17 01:15 06/23/17 01:15 06/23/17 01:15 06/23/17 01:15 06/23/17 01:15 - Notes Notes: General Appearance: Well nourished, alert, cooperative, no acute distress, no obvious discomfort. Well-appearing. Vitals: reviewed, See vital signs table. Head: no swelling or tenderness to the head Eyes: PERRL, EOMI, Conjuctiva clear Mouth: No decreasd moisture Lungs: No wheezing, No rales, No rhonci, No accessory muscle use, good air exchange bilaterally. Heart: Normal rate, Regular rythm, No murmur, no rub Abdomen: Normal BS, soft, No rigidity, No abdominal tenderness, No guarding, no rebound, no abdominal masses, no organomegaly Pelvic exam: Small amount of whitish vaginal discharge. No abnormal appearing discharge. No blood in vaginal vault. Normal external genitalia. Extremities: strength 5/5 in all extremities, good pulses in all extremities, no swelling or tenderness in the extremities, no edema. Skin: Diffuse papular rash that and some spots started to excoriate and seems to be improving. Rash is not painful to palpation. She does say it is pruritic. Neuro: speech clear, oriented x 3, normal affect, responds appropriately to questions. Course - Re-evaluation Re-evalutation: 06/24/17 05:43 I suspect the rash is related to staph infection based on the fact that it improved clindamycin appearance is consistent with that of disseminated type staph infection. I did consider PUPPs as the patient is in third trimester however rash did not really start around areas of striae a and she does not have any lesions that are really consistent with what the typical appearance of PUPPs. Patient clinically looks very well. She is in no distress and is not septic or toxic appearing. I will place on clindamycin for another 7 days. Encouraged her follow-up closely with her OB doctor. Encourage her return to ER if she has worsening her rash, pelvic pain that is increasing, vaginal bleeding, or fevers. Patient agrees with plan and she will be discharged home. Dictation of this chart was performed using voice recognition software; therefore, there may be some unintended grammatical errors. - Vital Signs Vital signs: Temp Pulse Resp BP Pulse Ox 98 F 78 18 128/62 H 98 06/23/17 04:45 06/23/17 04:45 06/23/17 04:45 06/23/17 04:45 06/23/17 04:45 - Laboratory Result Diagrams: 06/23/17 01:50 06/23/17 01:50 Laboratory results interpreted by me: 06/23/17 01:50 WBC 11.2 H Hgb 11.8 L Hct 35.6 L RDW 14.6 H Discharge - Discharge Clinical Impression: Rash Condition: Good Disposition: HOME, SELF-CARE Additional Instructions: Please follow up with your doctor in 2-3 days. I have prescribed another week of the Clindamycin to help continue the remained of your rash. I suspect that your rash is related to a staph infection based on its appearance and the fact that Clindamycin helped it. Please take an over the counter probiotic to help prevent diarrhea being that you are on the antibiotic. Please stop the antibiotic if you develop diarrhea. Please return to the ER immediatly if you develop worsening rash, fevers, vaginal bleeding, contractions, or feel that you are worsening. Prescriptions: Clindamycin HCl 300 mg PO ASDIR #56 capsule Referrals: EVELIN OWENS MD [Primary Care Provider] - Follow up in 3-5 days
[2017-06-23 02:07] LABS: ABSOLUTE EOSINOPHILS # (AUTO) 0.1 10^3/uL (0.0-0.6); ABSOLUTE LYMPHOCYTES (AUTO) 3.1 10^3/uL (0.5-4.7); ABSOLUTE MONOCYTES (AUTO) 0.5 10^3/uL (0.1-1.4); ABSOLUTE NEUT (AUTO) 7.5 10^3/uL (1.7-8.2); BASOPHILS % (AUTO) 0.4 % (0-2); HEMATOCRIT 35.6 % (36.0-47.0); HEMOGLOBIN 11.8 g/dL (12.0-15.5); LYMPHOCYTES % (AUTO) 27.4 % (13-45); MEAN CORPUSCULAR HEMOGLOBIN 29.4 pg (27.0-33.4); MEAN CORPUSCULAR HGB CONC 33.1 g/dL (32.0-36.0); MEAN CORPUSCULAR VOLUME 89 fl (80-97); MONOCYTES % (AUTO) 4.3 % (3-13); PLATELET COUNT 269 10^3/uL (150-450); RED BLOOD COUNT 4.01 10^6/uL (3.72-5.28); RED CELL DISTRIBUTION WIDTH 14.6 % (11.5-14.0); SEGMENTED NEUTROPHILS % (AUTO) 66.9 % (42-78); TOTAL CELLS COUNTED % (AUTO) 100 %; WHITE BLOOD COUNT 11.2 10^3/uL (4.0-10.5)
[2017-06-23 02:21] LABS: ANION GAP 12 (5-19); BLOOD UREA NITROGEN 9 mg/dL (7-20); CARBON DIOXIDE 24 mmol/L (22-30); CHLORIDE 107 mmol/L (98-107); GLUCOSE 92 mg/dL (75-110); POTASSIUM 4.3 mmol/L (3.6-5.0); SODIUM 142.7 mmol/L (137-145)
[2017-06-23 02:57] LABS: BACTERIA (WET MOUNT) 3+ BACTERIA SEEN; RBCS (WET MOUNT) NO RBCS SEEN; T.VAGINALIS (WET MOUNT) NO TRICHOMONAS SEEN; WBCS (WET MOUNT) NO WBCS SEEN; YEAST (WET MOUNT) NO YEAST SEEN
[2017-06-23 04:02] LABS: APPEARANCE,URINE SLIGHTLY-CLOUDY; BILIRUBIN,URINE NEGATIVE (NEGATIVE); COLOR,URINE YELLOW; GLUCOSE, URINE NEGATIVE (NEGATIVE); KETONES,URINE NEGATIVE (NEGATIVE); LEUKOCYTE ESTERASE,URINE NEGATIVE (NEGATIVE); NITRITE,URINE NEGATIVE (NEGATIVE); PROTEIN,URINE NEGATIVE (NEGATIVE); URINE SPECIFIC GRAVITY 1.017; UROBILINOGEN,URINE NEGATIVE mg/dL (<2.0)
[2017-06-23 05:08] VITALS: BP 128/62
== END 2017-06-23 04:45 | disposition home or self-care (01) ==
LOC: ER 01:08
DX: O26.92 Pregnancy related conditions, unspecified, second trimester (principal); R21 Rash and other nonspecific skin eruption; Z3A.24 24 weeks gestation of pregnancy
CPT/HCPCS: 36415; 80048; 81001; 85025; 87210; 99283

== ENCOUNTER 2018-11-20 16:42 | Outpatient (CLI) | payer MEDICAID ==
[2018-11-20 19:01] LABS: HEMATOCRIT 28.4 % (36.0-47.0); HEMOGLOBIN 9.3 g/dL (12.0-15.5); MEAN CORPUSCULAR HEMOGLOBIN 26.4 pg (27.0-33.4); MEAN CORPUSCULAR HGB CONC 32.7 g/dL (32.0-36.0); MEAN CORPUSCULAR VOLUME 81 fl (80-97); PLATELET COUNT 159 10^3/uL (150-450); RED BLOOD COUNT 3.52 10^6/uL (3.72-5.28); RED CELL DISTRIBUTION WIDTH 14.6 % (11.5-14.0); WHITE BLOOD COUNT 8.4 10^3/uL (4.0-10.5)
[2018-11-20 19:09] LABS: BACTERIA (WET MOUNT) 4+ BACTERIA SEEN; EPITHELIALS (WET MOUNT) 4+ EPITHELIALS SEEN; RBCS (WET MOUNT) NO RBCS SEEN; T.VAGINALIS (WET MOUNT) NO TRICHOMONAS SEEN; WBCS (WET MOUNT) 4+ WBCS SEEN; YEAST (WET MOUNT) NO YEAST SEEN
[2018-11-20 19:28] LABS: ABSOLUTE LYMPHOCYTES# (MANUAL) 2.5 10^3/uL (0.5-4.7); ABSOLUTE MONOCYTES # (MANUAL) 0.1 10^3/uL (0.1-1.4); BASOPHILS % (MANUAL) 0 % (0-2); EOSINOPHILS % (MANUAL) 1 % (0-6); LYMPHOCYTES % (MANUAL) 30 % (13-45); MONOCYTES % (MANUAL) 1 % (3-13); SEGMENTED NEUTROPHILS % (MAN) 68 % (42-78); TOTAL CELLS COUNTED 100
[2018-11-20 19:29] LABS: ANISOCYTOSIS SLIGHT; HYPOCHROMASIA SLIGHT; PLATELET COMMENT ADEQUATE
[2018-11-20 19:30] LABS: APPEARANCE,URINE CLOUDY; BILIRUBIN,URINE NEGATIVE (NEGATIVE); GLUCOSE, URINE NEGATIVE (NEGATIVE); KETONES,URINE NEGATIVE (NEGATIVE); LEUKOCYTE ESTERASE,URINE MODERATE (NEGATIVE); NITRITE,URINE POSITIVE (NEGATIVE); PROTEIN,URINE 30 mg/dL (NEGATIVE); URINE SPECIFIC GRAVITY 1.024
[2018-11-20 19:31] LABS: URINE AMPHETAMINES SCREEN NEGATIVE; URINE BARBITURATES SCREEN NEGATIVE; URINE BENZODIAZEPINES SCREEN NEGATIVE; URINE COCAINE SCREEN NEGATIVE; URINE MARIJUANA (THC) SCREEN NEGATIVE; URINE METHADONE SCREEN NEGATIVE; URINE PHENCYCLIDINE SCREEN NEGATIVE
[2018-11-20 19:34] LABS: COLOR,URINE DARK YELLOW
[2018-11-20] MEDS ORDERED: CEFTRIAXONE INJ 1000 MG VIAL IM ONE ×2 (20:03→20:30)
[2018-11-20] MEDS ORDERED: LIDOCAINE 1% INJ-PF (10 MG/ML) 30 ML SDV INJ ONE (20:03)
[2018-11-20] MEDS ORDERED: LIDOCAINE 1% INJ-PF (10 MG/ML) 30 ML SDV ONE (20:18)
[2018-11-20] MEDS ORDERED: CEFTRIAXONE INJ 1000 MG VIAL ONE (20:18)
[2018-11-20 20:25] LABS: CHLAM PCR NOT DETECTED (NOT DETECT)
[2018-11-20] MEDS ORDERED: LIDOCAINE HCL 1% INJ (FOR 1 GM VIAL) INJ ONE (20:30)
[2018-11-20 21:51] LABS: APPEARANCE,URINE CLEAR; BILIRUBIN,URINE NEGATIVE (NEGATIVE); COLOR,URINE STRAW; GLUCOSE, URINE NEGATIVE (NEGATIVE); KETONES,URINE NEGATIVE (NEGATIVE); LEUKOCYTE ESTERASE,URINE SMALL (NEGATIVE); NITRITE,URINE NEGATIVE (NEGATIVE); PROTEIN,URINE NEGATIVE (NEGATIVE); URINE SPECIFIC GRAVITY 1.003; UROBILINOGEN,URINE NEGATIVE mg/dL (<2.0)
--- NOTE | 2018-11-20 23:34 | RADIOLOGY REPORT (SQ) ---
EXAM DESCRIPTION: US BIOPHYSICAL PROFILE WITHOUT NON STRESS TEST COMPLETED DATE/TME: 11/20/2018 22:08 CLINICAL HISTORY: 23 years, Female, non reactive NST COMPARISON: None. TECHNIQUE: LIMITATIONS: None. FINDINGS: There is a single live intrauterine fetus in vertex presentation. cardiac activity was measured at 125 bpm. There is a normal amount of amniotic fluid. The amniotic fluid index is 16.2 cm. The biophysical profile is 8/8. IMPRESSION: The biophysical profile is 8/8. copyright 2010 [employer]- All Rights Reserved
--- NOTE | 2018-11-21 00:53 | Non Stress Test Report ---
Non Stress Test Datetime Report Generated by CPN: 11/21/2018 00:53 DEMOGRAPHIC EGA NST: 37.3 INDICATION Indication for Study: Ordered by Provider URINE RESULTS Urine Protein, NST: Positive Urine Ketones - NST: Negative Urine Glucose - NST: Negative Urine Blood - NST: Negative MONITORING Monitor Explained: Monitor Explained; Test Explained; Patient Verbalized Understanding Time on Monitor: 11/20/2018 17:55 Time off Monitor: 11/20/2018 22:51 NST Duration: 296 NST INTERVENTIONS NST Interventions: PO Hydration; IV Fluids; Meal Given; For Biophysical Profile BABY A: [id number] BABY A Movement : Present Contraction Frequency : irregular FHR Baseline : 155 Accelerations : 10X10 Decelerations : Late; Variable Variability : Moderate 6-25bpm NST Review: Does Not Meet Criteria for Reactive NST NST Review and Verified By : Karel Cason RN NST Results: Non-Reactive NST COMMENTS NST Comments: pt had 8/[address] Daley on unit and reviewed strip before pt had BPP NST REPORT Report Trigger: Send Report
[2018-11-22 07:37] LABS: HEPATITIS C VIRUS AB <0.1 s/co ratio (0.0-0.9)
[2018-11-23 13:13] LABS: HEPATITS B SURFACE ANTIGEN Negative (Negative)
== END 2018-11-20 23:45 | disposition home or self-care (01) ==
LOC: LC 16:42
PROVIDERS: ATTEND Obstetrics & Gynecology
PROC: 4A1HXCZ Monitoring of Products of Conception, Cardiac Rate, External Approach (ICD-10-PCS; principal; 2018-11-20)
DX: O36.8330 Maternal care for abnormalities of the fetal heart rate or rhythm, third trimester, not applicable or unspecified (principal); O47.1 False labor at or after 37 completed weeks of gestation; Z3A.37 37 weeks gestation of pregnancy
CPT/HCPCS: 59025; 86900; 86901; 36415; 87086; 87210; 86850; 85025; 87088; 86762; 86592; 81001; 87340; 86701; 87186; 80307; 87491; 87591; 86803; 86804; 84112; 76819; J3490; J0696

== ENCOUNTER 2018-12-04 13:48 | Outpatient (CLI) | payer MEDICAID ==
[2018-12-04 14:49] LABS: APPEARANCE,URINE CLEAR; BILIRUBIN,URINE NEGATIVE (NEGATIVE); COLOR,URINE YELLOW; GLUCOSE, URINE NEGATIVE (NEGATIVE); KETONES,URINE NEGATIVE (NEGATIVE); LEUKOCYTE ESTERASE,URINE TRACE (NEGATIVE); NITRITE,URINE NEGATIVE (NEGATIVE); PROTEIN,URINE NEGATIVE (NEGATIVE); URINE SPECIFIC GRAVITY 1.013; UROBILINOGEN,URINE NEGATIVE mg/dL (<2.0)
[2018-12-04 15:15] LABS: URINE AMPHETAMINES SCREEN NEGATIVE; URINE BARBITURATES SCREEN NEGATIVE; URINE BENZODIAZEPINES SCREEN NEGATIVE; URINE COCAINE SCREEN NEGATIVE; URINE MARIJUANA (THC) SCREEN NEGATIVE; URINE METHADONE SCREEN NEGATIVE; URINE PHENCYCLIDINE SCREEN NEGATIVE
--- NOTE | 2018-12-04 15:30 | RADIOLOGY REPORT (SQ) ---
EXAM DESCRIPTION: U/S OB LIMITED COMPLETED DATE/TIME: 12/04/2018 3:16 pm REASON FOR STUDY: need dating US please,FERMIN/SDP COMPARISON: 11/20/2018 TECHNIQUE: Limited transabdominal grayscale ultrasound for evaluation of specific requested obstetri kashmir parameters. LIMITATIONS: None. FINDINGS: CERVICAL LENGTH: Not measured. Closed. FERMIN: 16.8 cm. FHR: 143 beats per minute. PRESENTATION: Cephalic. PLACENTA: Fundal ANATOMY: Not assessed OTHER: 37 week 5 day gestation. IMPRESSION: LIMITED OBSTETRICAL ULTRASOUND WITH MEASURED PARAMETERS DELINEATED ABOVE. Trimester of : Third trimester - 28 weeks to delivery. TECHNICAL DOCUMENTATION: JOB ID: [id number] [employer]- All Rights Reserved Reading location - IP/workstation name: [email or web address]
[2018-12-04] MEDS ORDERED: DEXTROSE 5%-LACTATED RINGERS 1,000 ML IV PRN (15:32)
--- NOTE | 2018-12-04 18:36 | RADIOLOGY REPORT (SQ) ---
EXAM DESCRIPTION: U/S PROFILE W/O STRESS COMPLETED DATE/TIME: 12/04/2018 6:23 pm REASON FOR STUDY: BPP COMPARISON: None. TECHNIQUE: Limited rl-scale realtime and static images of the fetus to measure specified parameter s. LIMITATIONS: None. FINDINGS: HEART RATE: 143 beats per minute. FERMIN: Largest measured pocket 10.5 cm. BREATHING MOVEMENT: 0 points. MOVEMENT: 2 points. POSTURE AND TONE: 2 points. QUALITATIVE FERMIN: 2 points. OTHER: No other significant finding. IMPRESSION: BIOPHYSICAL PROFILE: 08/01. Trimester of : Third - 28 weeks to delivery COMMENT: BREATHING MOVEMENTS: 2 POINTS: PRESENT 0 POINTS: ABSENT MOTION: 2 POINTS: PRESENT 0 POINTS: ABSENT TONE: 2 POINTS: PRESENT 0 POINTS: ABSENT AMNIOTIC FLUID VOLUME: 2 POINTS: LARGEST POCKET GREATER THAN 2 CM DEPTH. 0 POINTS: NO POCKET OF 2 CM. TECHNICAL DOCUMENTATION: JOB ID: [id number] [employer]- All Rights Reserved Reading location - IP/workstation name: [email or web address]
--- NOTE | 2018-12-04 19:11 | Non Stress Test Report ---
Non Stress Test Datetime Report Generated by CPN: 12/04/2018 19:11 DEMOGRAPHIC EGA NST: 39.3 INDICATION Indication for Study: Ordered by Provider VITAL SIGNS Temperature - NST: 98.3 Pulse - NST: 86 RESP - NST: 20 NBPSYS NST: 118 NBPDIA NST: 74 MONITORING Monitor Explained: Monitor Explained; Test Explained; Patient Verbalized Understanding Time on Monitor: 12/04/2018 13:52 Time off Monitor: 12/04/2018 19:00 NST Duration: 308 NST INTERVENTIONS NST Interventions: PO Hydration; IV Fluids Physician Notified NST: Dr Giles BABY A: [id number] BABY A Movement : Present Contraction Frequency : occasional FHR Baseline : 135 Accelerations : 15X15 Decelerations : None Variability : Moderate 6-25bpm NST Review and Verified By : SAutry NST Results: Reactive NST REPORT Report Trigger: Send Report
== END 2018-12-04 19:00 | disposition home or self-care (01) ==
LOC: LC 13:48
PROVIDERS: ATTEND Student in an Organized Health Care Education/Training Program
PROC: 4A1HXCZ Monitoring of Products of Conception, Cardiac Rate, External Approach (ICD-10-PCS; principal; 2018-12-04)
DX: O47.1 False labor at or after 37 completed weeks of gestation (principal); Z3A.39 39 weeks gestation of pregnancy
CPT/HCPCS: 59025; 76815; 76819; 80307; 81005; 82962; 84112; 87081

== ENCOUNTER 2018-12-12 03:17 | Inpatient (IN) | payer MEDICAID ==
[2018-12-12] MEDS ORDERED: RINGERS SOLUTION,LACTATED 1,000 ML IV PRN (03:49)
[2018-12-12] MEDS ORDERED: OXYTOCIN 10 UNIT/ML VIAL ONE (03:53)
[2018-12-12] MEDS ORDERED: LIDOCAINE 1% INJ-PF (10 MG/ML) 30 ML SDV ONE (03:54)
[2018-12-12] MEDS ORDERED: MISOPROSTOL 0.2 MG TABLET ONE (03:54)
[2018-12-12] MEDS ORDERED: OXYTOCIN/NORMAL SALINE 20 UNIT/1,000 ML RTUINJ ONE (03:54)
[2018-12-12] MEDS ORDERED: AMPICILLIN SOD INJ 2 GM VIAL ONE (04:30)
[2018-12-12 04:52] LABS: ABSOLUTE BASOPHILS # (AUTO) 0.1 10^3/uL (0.0-0.2); ABSOLUTE LYMPHOCYTES (AUTO) 2.7 10^3/uL (0.5-4.7); ABSOLUTE MONOCYTES (AUTO) 0.4 10^3/uL (0.1-1.4); ABSOLUTE NEUT (AUTO) 6.4 10^3/uL (1.7-8.2); BASOPHILS % (AUTO) 0.5 % (0-2); EOSINOPHILS % (AUTO) 0.3 % (0-6); HEMATOCRIT 31.7 % (36.0-47.0); LYMPHOCYTES % (AUTO) 28.6 % (13-45); MEAN CORPUSCULAR HEMOGLOBIN 24.7 pg (27.0-33.4); MEAN CORPUSCULAR HGB CONC 31.5 g/dL (32.0-36.0); MEAN CORPUSCULAR VOLUME 79 fl (80-97); MONOCYTES % (AUTO) 3.8 % (3-13); PLATELET COUNT 182 10^3/uL (150-450); RED BLOOD COUNT 4.04 10^6/uL (3.72-5.28); RED CELL DISTRIBUTION WIDTH 15.4 % (11.5-14.0); SEGMENTED NEUTROPHILS % (AUTO) 66.8 % (42-78); TOTAL CELLS COUNTED % (AUTO) 100 %; WHITE BLOOD COUNT 9.6 10^3/uL (4.0-10.5)
[2018-12-12] MEDS: IBUPROFEN 800 MG TABLET PO SCH ×3 (05:25→23:00)
[2018-12-12] MEDS ORDERED: IBUPROFEN 800 MG TABLET ONE (05:30)
[2018-12-12] MEDS ORDERED: DIPHENHYDRAMINE HCL 25 MG CAPSULE PO PRN (05:36)
[2018-12-12] MEDS ORDERED: MEASLES,MUMPS&RUBELLA VACC/PF 0.5 ML VIAL SUBCUT PRN (05:36)
[2018-12-12] MEDS ORDERED: ACETAMINOPHEN 650 MG SUPP.RECT PR PRN (05:36)
[2018-12-12] MEDS ORDERED: ZOLPIDEM TARTRATE 5 MG TABLET PO PRN (05:36)
[2018-12-12] MEDS ORDERED: PROMETHAZINE HCL 25 MG SUPP.RECT PR PRN (05:36)
[2018-12-12] MEDS ORDERED: PSEUDOEPHEDRINE HCL 30 MG TABLET PO PRN (05:36)
[2018-12-12] MEDS ORDERED: PROMETHAZINE HCL INJ 25 MG/1 ML VIAL IV PRN (05:36)
[2018-12-12] MEDS ORDERED: DIPH/PERTUSS(ACELL)/TETANUS VAC/PF 0.5 ML SYR (>=10YO) IM PRN (05:36)
[2018-12-12] MEDS ORDERED: BENZOCAINE/MENTHOL AEROSOL SPRAY 56 ML TOP PRN (05:36)
[2018-12-12] MEDS ORDERED: GLYCERIN/WITCH HAZEL LEAF 1 EACH MED..WIPE TP PRN (05:36)
[2018-12-12] MEDS ORDERED: MAGNESIUM HYDROXIDE SUSP 30 ML UDCUP PO PRN (05:36)
[2018-12-12] MEDS ORDERED: OXYTOCIN/NORMAL SALINE 20 UNIT/1,000 ML RTUINJ IV PRN (05:36)
[2018-12-12] MEDS ORDERED: DIBUCAINE 1% OINTMENT 56 GM TP PRN (05:36)
[2018-12-12] MEDS ORDERED: NA PHOS,M-B/NA PHOS,DI-BA (ADULT) 133 ML ENEMA PR PRN (05:36)
--- NOTE | 2018-12-12 05:48 | Admission Physical ---
Datetime Report Generated by CPN: 12/12/2018 05:48 CURRENT ADMISSION Chief Complaint: Uterine Contractions Indication for Induction: Not Applicable Admit Impression : Term, Intrauterine ; Active Labor Admit Plan: Admit to Unit; Initiate Labor Protocol ALLERGIES Medication Allergies: No Medication Allergies: No Known Allergies (12/04/2018) Latex: No Latex Allergies OBSTETRICAL HISTORY EDC: 12/08/2018 00:00 : 3 Para: 2 Livin Gestational Diabetes: No Rh Sensitization: No Incompetent Cervix: No MARCOS: No Infertility: No ART Treatment: No Uterine Anomaly: No IUGR: No Hx Previous C/S: No Macrosomia: No Hx Loss/Stillborn: No PIH: No Hx : No Placenta Previa/Abruption: No Depression/PP Depression: No PTL/PROM: No Post Hemorrhage: No Current Procedures: Ultrasound Obstetrical History Comments: G1- 2015, 34 , NVD G2- 2017, 40, NVD G3- Current SEE RECORDS Alcohol: No Marijuana : No Cocaine: No Other Illicit Drugs: No Cigarettes: Former Smoker. 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: No Heart Disease: No Hosp/Surgery: Yes Autoimmune Disorder: No Anesthetic Complications: No Kidney Disease: Yes Abnormal Pap Smear: No Neuro/Epilepsy: No Psychiatric Disorders: No Other Medical Diseases: No Hepatitis/Liver Disease: No Significant Family History: No Varicosities/Phlebitis: No Trauma/Violence : No Thyroid Dysfunction: No INFECTIOUS HISTORY Gonorrhea: No Genital Herpes: No Chlamydia: No Tuberculosis: No Syphilis: No Hepatitis: No HIV/AIDS Exposure: No Rash or Viral Illness: No HPV: No PHYSICAL EXAM General: Normal HEENT: Normal Neurologic: Normal Thyroid: Normal Heart: Normal Lungs: Normal Breast: Deferred Back: Normal Abdomen: Normal Genitourinary Exam: Normal Extremities: Normal DTRs: Normal Pelvic Type: Adequate Vital Signs: Reviewed VAGINAL EXAM Dilatation: 8 Effacement: 90 Station: -2 MEMBRANES Pooling: Positive Membranes: Ruptured FETUS A EGA: 40.4 Monitoring: External US FHR- Baseline: 140 Variability: Moderate 6-25bpm Decelerations: None FHR Category: Category I Presentation: Vertex PLANS FOR LABOR AND DELIVERY Labor and Delivery: None Pain Management: Epidural Feeding Preference: Breast Benefit of Breast Feed Discussed: Yes Circumcision: N/A INFORMED CONSENT Signature: with User ID: [email or web address]
[2018-12-12 05:58] LABS: APPEARANCE,URINE SLIGHTLY-CLOUDY; BILIRUBIN,URINE NEGATIVE (NEGATIVE); COLOR,URINE YELLOW; GLUCOSE, URINE NEGATIVE (NEGATIVE); KETONES,URINE NEGATIVE (NEGATIVE); LEUKOCYTE ESTERASE,URINE SMALL (NEGATIVE); NITRITE,URINE NEGATIVE (NEGATIVE); PROTEIN,URINE NEGATIVE (NEGATIVE); URINE SPECIFIC GRAVITY 1.012; UROBILINOGEN,URINE NEGATIVE mg/dL (<2.0)
[2018-12-12 06:16] LABS: URINE AMPHETAMINES SCREEN NEGATIVE; URINE BARBITURATES SCREEN NEGATIVE; URINE BENZODIAZEPINES SCREEN NEGATIVE; URINE COCAINE SCREEN NEGATIVE; URINE MARIJUANA (THC) SCREEN NEGATIVE; URINE METHADONE SCREEN NEGATIVE; URINE PHENCYCLIDINE SCREEN NEGATIVE
[2018-12-12] MEDS ORDERED: ACETAMINOPHEN WITH CODEINE #3 TABLET ONE (06:57)
[2018-12-12] MEDS: ACETAMINOPHEN WITH CODEINE #3 TABLET PO PRN ×3 (06:58→19:54)
[2018-12-12] MEDS ORDERED: PRENATAL VITAMIN W DHA CAPSULE PO ONE (10:38)
[2018-12-12] MEDS ORDERED: SENNOSIDES/DOCUSATE 8.6-50 MG 1 EACH TABLET ONE (10:38)
[2018-12-12] MEDS ORDERED: DOCUSATE SODIUM 100 MG CAPSULE ONE (10:39)
[2018-12-12] MEDS ORDERED: FERROUS SULFATE 325 MG TABLET PO ONE (10:39)
[2018-12-12] MEDS: DOCUSATE SODIUM 100 MG CAPSULE PO SCH ×2 (10:41→17:52)
[2018-12-12] MEDS: FERROUS SULFATE 325 MG TABLET PO SCH ×2 (10:41→17:52)
[2018-12-12] MEDS: PRENATAL VITAMIN W DHA CAPSULE PO SCH (10:41)
[2018-12-12] MEDS: SENNOSIDES/DOCUSATE 8.6-50 MG 1 EACH TABLET PO SCH (10:41)
[2018-12-12] MEDS ORDERED: MORPHINE SULFATE 10 MG/ML INJ ONE (11:13)
[2018-12-12] MEDS: FAMOTIDINE 20 MG TABLET PO SCH ×2 (17:48→23:00)
[2018-12-12] MEDS: PROMETHAZINE HCL 25 MG TABLET PO PRN (23:13)
[2018-12-13] MEDS: PROMETHAZINE HCL 25 MG TABLET PO PRN (03:41)
[2018-12-13] MEDS: ACETAMINOPHEN WITH CODEINE #3 TABLET PO PRN ×2 (03:41→17:54)
[2018-12-13] MEDS: IBUPROFEN 800 MG TABLET PO SCH ×3 (05:56→21:38)
[2018-12-13 08:08] LABS: HEMATOCRIT 27.9 % (36.0-47.0); MEAN CORPUSCULAR HEMOGLOBIN 25.5 pg (27.0-33.4); MEAN CORPUSCULAR HGB CONC 32.4 g/dL (32.0-36.0); MEAN CORPUSCULAR VOLUME 79 fl (80-97); PLATELET COUNT 135 10^3/uL (150-450); RED BLOOD COUNT 3.54 10^6/uL (3.72-5.28); RED CELL DISTRIBUTION WIDTH 15.8 % (11.5-14.0); WHITE BLOOD COUNT 9.4 10^3/uL (4.0-10.5)
[2018-12-13] MEDS: FERROUS SULFATE 325 MG TABLET PO SCH (10:14)
[2018-12-13] MEDS: SENNOSIDES/DOCUSATE 8.6-50 MG 1 EACH TABLET PO SCH (10:14)
[2018-12-13] MEDS: DOCUSATE SODIUM 100 MG CAPSULE PO SCH (10:14)
[2018-12-13] MEDS: FAMOTIDINE 20 MG TABLET PO SCH ×2 (10:15→21:39)
[2018-12-13] MEDS: PRENATAL VITAMIN W DHA CAPSULE PO SCH (10:15)
--- NOTE | 2018-12-13 13:10 | PDOC PROGRESS REPORT ---
Subjective-OB Progress Note for:: 12/13/18 Subjective: Pt doing well, resting. Denies heavy bleeding. Reports reg diet and voiding without difficulty. Physical Exam (OB) Vital Signs: Temp Pulse Resp BP Pulse Ox 98 F 69 16 121/79 100 12/13/18 08:50 12/13/18 08:50 12/13/18 08:50 12/13/18 08:50 12/13/18 08:50 Intake & Output 12/12/18 12/13/18 12/14/18 06:59 06:59 06:59 Weight 101 kg - PIH/Pre-Eclampsia Clonus: Negative Headache: Absent Epigastric Pain: No Visual Changes: No - Lochia Lochia Amount: Scant < 10 ml Lochia Color: Rubra/Red - Abdomen Description: Soft Hernia Present: Yes Fundal Description: Firm, Midline Fundal Height: u/u - u/2 Objective-Diagnostic Laboratory: 12/13/18 07:38 12/13/18 12/13/18 07:38 07:38 WBC 9.4 RBC 3.54 L Hgb 9.0 L Hct 27.9 L MCV 79 L MCH 25.5 L MCHC 32.4 RDW 15.8 H Plt Count 135 L Blood Type O NEGATIVE Assessment and Plan(PN) - Assessment and Plan (1) Delivery normal Is this a current diagnosis for this admission?: Yes - Time Spent with Patient Time with patient: Less than 15 minutes Medications reviewed and adjusted accordingly: Yes - Disposition Anticipated Discharge: Home Within: within 24 hours
[2018-12-14] MEDS: IBUPROFEN 800 MG TABLET PO SCH (06:06)
[2018-12-14] MEDS: SENNOSIDES/DOCUSATE 8.6-50 MG 1 EACH TABLET PO SCH (09:33)
[2018-12-14] MEDS: FAMOTIDINE 20 MG TABLET PO SCH (09:33)
[2018-12-14] MEDS: ACETAMINOPHEN WITH CODEINE #3 TABLET PO PRN (09:33)
[2018-12-14] MEDS: PRENATAL VITAMIN W DHA CAPSULE PO SCH (09:33)
[2018-12-14] MEDS: DOCUSATE SODIUM 100 MG CAPSULE PO SCH ×2 (09:34)
[2018-12-14] MEDS: FERROUS SULFATE 325 MG TABLET PO SCH ×2 (09:34)
--- NOTE | 2018-12-14 10:51 | PDOC PROGRESS REPORT ---
Subjective-OB Progress Note for:: 12/14/18 Subjective: Doing well, hsb in bed with pt, no c.o, bottle feeding Physical Exam (OB) Vital Signs: Temp Pulse Resp BP Pulse Ox 98.0 F 76 14 103/63 99 12/14/18 08:12 12/14/18 08:12 12/14/18 08:12 12/14/18 08:12 12/14/18 08:12 Intake & Output 12/13/18 12/14/18 12/15/18 06:59 06:59 06:59 Intake Total 600 1000 Balance 600 1000 - PIH/Pre-Eclampsia Clonus: Negative Headache: Absent Epigastric Pain: No Visual Changes: No - Lochia Lochia Amount: Scant < 10 ml Lochia Color: Rubra/Red - Abdomen Description: Soft Hernia Present: No Fundal Description: Firm, Midline Fundal Height: u/u - u/2 Objective-Diagnostic Laboratory: 12/13/18 07:38 12/13/18 07:38 Blood Type O NEGATIVE Assessment and Plan(PN) - Assessment and Plan (1) Delivery normal Is this a current diagnosis for this admission?: Yes - Time Spent with Patient Time with patient: Less than 15 minutes Medications reviewed and adjusted accordingly: Yes - Disposition Anticipated Discharge: Home Within: within 24 hours
--- NOTE | 2018-12-14 10:57 | PDOC DISCHARGE SUMMARY ---
Impression - Admit/DC Date/PCP Admission Date/Primary Care Provider: 12/12/18 03:53 Discharge Date: 12/14/18 - Discharge Diagnosis (1) Delivery normal Is this a current diagnosis for this admission?: Yes - Additional Information Resuscitation Status: Full Code Discharge Diet: As Tolerated, Regular Discharge Activity: Activity As Tolerated, No Lifting Over 10 Pounds, No Lifting/Push/Pulling, Pelvic Rest Referrals: EMILIANO PABLO MD [ACTIVE STAFF] - (RTC 4 weeks) Home Medications: No Home Medications 12/04/18 HPI Reason(s) for Admission: Onset of Labor Procedures: Ultrasound Intrapartum Procedure(s): Spontaneous Vaginal Delivery Complication(s): Laceration-Perineal Laceration-Degree: 1st Hospital Course Hospital Course: routine Results Laboratory Results: WBC 9.4 10^3/uL (4.0-10.5) 12/13/18 07:38 RBC 3.54 10^6/uL (3.72-5.28) L 12/13/18 07:38 Hgb 9.0 g/dL (12.0-15.5) L 12/13/18 07:38 Hct 27.9 % (36.0-47.0) L 12/13/18 07:38 MCV 79 fl (80-97) L 12/13/18 07:38 MCH 25.5 pg (27.0-33.4) L 12/13/18 07:38 MCHC 32.4 g/dL (32.0-36.0) 12/13/18 07:38 RDW 15.8 % (11.5-14.0) H 12/13/18 07:38 Plt Count 135 10^3/uL (150-450) L 12/13/18 07:38 Lymph % (Auto) 28.6 % (13-45) 12/12/18 04:35 [place] % (Auto) 3.8 % (3-13) 12/12/18 04:35 Eos % (Auto) 0.3 % (0-6) 12/12/18 04:35 Baso % (Auto) 0.5 % (0-2) 12/12/18 04:35 Absolute Neuts (auto) 6.4 10^3/uL (1.7-8.2) 12/12/18 04:35 Absolute Lymphs (auto) 2.7 10^3/uL (0.5-4.7) 12/12/18 04:35 Absolute Monos (auto) 0.4 10^3/uL (0.1-1.4) 12/12/18 04:35 Absolute Eos (auto) 0.0 10^3/uL (0.0-0.6) 12/12/18 04:35 Absolute Basos (auto) 0.1 10^3/uL (0.0-0.2) 12/12/18 04:35 Seg Neutrophils % 66.8 % (42-78) 12/12/18 04:35 Urine Color YELLOW 12/12/18 03:30 Urine Appearance SLIGHTLY-CLOUDY 12/12/18 03:30 Urine pH 6.0 (5.0-9.0) 12/12/18 03:30 Ur Specific [place] 1.012 12/12/18 03:30 Urine Protein NEGATIVE mg/dL (NEGATIVE) 12/12/18 03:30 Urine Glucose (UA) NEGATIVE mg/dL (NEGATIVE) 12/12/18 03:30 Urine Ketones NEGATIVE mg/dL (NEGATIVE) 12/12/18 03:30 Urine Blood NEGATIVE (NEGATIVE) 12/12/18 03:30 Urine Nitrite NEGATIVE (NEGATIVE) 12/12/18 03:30 Urine Bilirubin NEGATIVE (NEGATIVE) 12/12/18 03:30 Urine Urobilinogen NEGATIVE mg/dL (<2.0) 12/12/18 03:30 Ur Leukocyte Esterase SMALL (NEGATIVE) H 12/12/18 03:30 Urine Ascorbic Acid NEGATIVE (NEGATIVE) 12/12/18 03:30 Urine Opiates Screen NEGATIVE 12/12/18 03:30 Urine Methadone Screen NEGATIVE 12/12/18 03:30 Ur Barbiturates Screen NEGATIVE 12/12/18 03:30 Ur Phencyclidine Scrn NEGATIVE 12/12/18 03:30 Ur Amphetamines Screen NEGATIVE 12/12/18 03:30 U Benzodiazepines Scrn NEGATIVE 12/12/18 03:30 Urine Cocaine Screen NEGATIVE 12/12/18 03:30 U Marijuana (THC) Screen NEGATIVE 12/12/18 03:30 RPR NONREACTIVE (NONREACTIVE) 12/12/18 04:35 Blood Type O NEGATIVE 12/13/18 07:38 Antibody Screen NEGATIVE 12/12/18 04:35 Screen NEGATIVE 12/13/18 07:38 Plan Health Concerns: none Plan of Treatment: routine pp care Goals: keep appt 4 weeks at [facility], no care
[2018-12-14] MEDS ORDERED: INFLUENZA QUAD (6MOS+) 2019-20 VAC 0.5 ML SYR IM ONE (11:59)
[2018-12-14 12:09] VITALS: BP 127/74
[2018-12-15] MEDS ORDERED: INFLUENZA QUAD (6MOS+) 2019-20 VAC 0.5 ML SYR IM ONE (08:00)
--- NOTE | 2018-12-16 12:16 | Delivery Summary ---
Del Sum A-C Datetime Report Generated by CPN: 12/16/2018 12:16 DELIVERY PERSONNEL DELIVERY PERSONNEL: [id number] Delivery Doctor:: Sonya Quiroz MD Labor and Delivery Nurse:: Theresa Gonzalez RNsearch specialist Nurse:: Lissy Pierce RN Nursery Nurse:: Betty Pascual RN Contract Administration Specialist/LIME MIXER: Rachel Gomez, ST MATERNAL INFORMATION Delivery Anesthesia: None Medications After Delivery: Pitocin Drip 20 Units/1000ml NSS Estimated Blood Loss (ml): 250 Maternal Complications: Precipitous Labor (<3hrs) LABOR SUMMARY EDC: 12/08/2018 00:00 No. Babies in Womb: 1 Attempted: No Labor Anesthesia: None LABOR INFORMATION Reason for Induction: Not Applicable Onset of Labor: 12/12/2018 03:43 Complete Dilatation: 12/12/2018 04:54 Oxytocin: N/A Group B Beta Strep: 1 NO GROUP B STREPTOCOCCUS RECOVERED Group B Beta Strep: sent 12/04/18 Antibiotics # of Doses: 1 Antibiotics Time of Last Dose: 0450 Name of Antibiotic Given: ampicillin Steroids Given: None Reason Steroids Not Administered: Not Applicable MEMBRANES Membranes Rupture Method: Artificial Rupture of Membranes: 12/12/2018 05:01 Rupture of Membranes: 12/12/2018 05:01 Length of Rupture (hr): 0.07 Length of Rupture (hr): 0.07 Amniotic Fluid Color: Particulate Meconium Amniotic Fluid Amount: Moderate Amniotic Fluid Odor: Normal STAGES OF LABOR Stage 1 hr: 1 Stage 1 min: 11 Stage 2 hr: 0 Stage 2 min: 11 Stage 3 hr: 0 Stage 3 min: 4 Total Time in Labor hr: 1 Total Time in Labor min: 26 VAGINAL DELIVERY Episiotomy: None Laceration #1: Perineal Laceration Extension #1: First Degree Laceration #2: None Laceration Extension #2: N/A Laceration #3: None Laceration Extension #3: N/A Laceration Repair: Yes Laceration Repair Note: repair in usual fashion with 3-0 chromic suture Sponge Count Correct: Yes Sharps Count Correct: Yes CSECTION DELIVERY Primary Indication: N/A Secondary Indication: N/A CSection Incidence: N/A Labor: N/A Elective: N/A CSection Incision: N/A BABY A INFORMATION Infant Delivery Date/Time: 12/12/2018 05:05 Method of Delivery: Vaginal Method of Delivery: Vaginal Method of Delivery: Vaginal Born in Route : No : N/A Forceps: N/A Vacuum Extraction: N/A Shoulder Dystocia : No PRESENTATION/POSITION BABY A Presentation: Cephalic Cephalic Presentation: Vertex Vertex Position: Left Occipital Anterior Breech Presentation: N/A PLACENTA INFORMATION BABY A Placenta Delivery Time : 12/12/2018 05:09 Placenta Method of Delivery: Spontaneous Placenta Method of Delivery: Spontaneous Placenta Status: Delivered SCORES BABY A Heart Rate 1 min: >100 bpm Resp Effort 1 min: Slow, Irregular Reflex Irritability 1 min: Cough or Sneeze or Pulls Away Muscle Tone 1 min: Active Motion Color 1 min: Body Zebulon, Extremities Blue Resuscitation Effort 1 min: Tactile Stimulation SCORE 1 MIN: 8 Heart Rate 5 min: >100 bpm Resp Effort 5 min: Good Cry Reflex Irritability 5 min: Cough or Sneeze or Pulls Away Muscle Tone 5 min: Active Motion Color 5 min: Body Zebulon, Extremities Blue Resuscitation Effort 5 min: Tactile Stimulation SCORE 5 MIN: 9 INFANT INFORMATION BABY A Gestational Age at Delivery: 40.4 Gestational Status: Full Term- 39- 40.6 Weeks Outcome : Liveborn Infant Condition : Stable Infant Sex: Female Sex: Female IDENTIFICATION BABY A Verification Date/Time: 12/12/2018 05:28 ID Band Number: [id number] Mother's Name Verified: Yes Infant RN Verifying : Stan, A. RN Additional Verifying Personnel: Carlos, S. RN WEIGHT/LENGTH BABY A Infant Birthweight (gm): 4180 Weight (lb): 9 Infant Weight (oz): 3 Infant Length (in): 21.00 Length (cm): 53.34 CORD INFORMATION BABY A Nuchal Cord : Around Neck x1, Loose Infant Suction: Mouth ASSESSMENT BABY A Complications: Meconium Physical Findings at Delivery: Within Normal Limits Infant Respirations: Appears Normal Skin to Skin: Yes Skin to Skin Time (min): 15 Laborer Salvage/ALS Called : No Care By: Armando Dee RN Transferred To: Remains with Mother SIGNATURES Signature: with User ID: [email or web address]
== END 2018-12-14 12:35 | disposition home or self-care (01) | DRG 807 ==
LOC: LC 03:17 → LR 03:53 → 2S 12:30
PROVIDERS: ADMIT Obstetrics & Gynecology; ATTEND Obstetrics & Gynecology
PROC: 10E0XZZ Delivery of Products of Conception, External Approach (ICD-10-PCS; principal; 2018-12-12)
PROC: 0HQ9XZZ Repair Perineum Skin, External Approach (ICD-10-PCS; 2018-12-12)
PROC: 10907ZC Drainage of Amniotic Fluid, Therapeutic from Products of Conception, Via Natural or Artificial Opening (ICD-10-PCS; 2018-12-12)
PROC: 3E0234Z Introduction of Serum, Toxoid and Vaccine into Muscle, Percutaneous Approach (ICD-10-PCS; 2018-12-14)
PROC: 3E02340 Introduction of Influenza Vaccine into Muscle, Percutaneous Approach (ICD-10-PCS; 2018-12-14)
DX: O26.893 Other specified pregnancy related conditions, third trimester (principal); Z37.0 Single live birth; Z67.41 Type O blood, Rh negative; Z23 Encounter for immunization; O70.0 First degree perineal laceration during delivery; O62.3 Precipitate labor; O69.81X0 Labor and delivery complicated by cord around neck, without compression, not applicable or unspecified; Z87.891 Personal history of nicotine dependence; Z3A.40 40 weeks gestation of pregnancy
CPT/HCPCS: 36415; 80307; 81005; 85025; 85027; 85461; 86592; 86850; 86900; 86901; 90686; 90715; J0290; J2270; J2590; J2790; J3490

== ENCOUNTER → 2019-10-12 | Outpatient (CLI) | payer SELFPAY ==
--- NOTE | 2019-10-12 14:06 | RADIOLOGY REPORT (SQ) ---
EXAM DESCRIPTION: U/S [id number] TRNABD 1GES W/ODOP IMAGES COMPLETED DATE/TIME: 10/12/2019 1:38 pm REASON FOR STUDY: Z34.81 ENCOUNTER FOR SUPRVSN OF NORMAL , FIRST TRIMESTER Z34.81 ENCOUNTE R FOR SUPRVSN OF NORMAL , FIRST TRIM COMPARISON: None. TECHNIQUE: Transvaginal and transabdominal static and realtime grayscale images acquired of the pelv is. Additional selected spectral and color Doppler images recorded. All images stored on PACs. bHCG: Not applicable. CLINICAL DATES: LMP 07/28/2019. 10 weeks 6 days. LIMITATIONS: None. FINDINGS: FETUS: Single Living intrauterine . ULTRASOUND EGA: 7 weeks 0 days ULTRASOUND JOAQUIN: 05/30/2020 EFW: Not applicable less than 20 weeks. CRL: 0.6 cm FHR: flicker was seen at about 87 beats per minute. SURVEY: Too early to assess. AMNIOTIC FLUID: Adequate amount. PLACENTA: Not yet developed due to early gestation. SUBCHORIONIC BLEED: Yes SIZE OF BLEED: 17 x 35 x 14 mm. UTERUS: No masses. No anomalies. CERVICAL LENGTH: 3.9 cm. Closed. RIGHT ADNEXA: Normal ovary with normal vascular flow. 2.9 x 2.1 x 2.1 cm. No adnexal free fluid. No adnexal masses. LEFT ADNEXA: Normal ovary with corpus luteum 2.7 x 2.2 x 1.6. Normal vascular flow. 3.6 x 2.7 x 2.1 cm. No adnexal free fluid. No adnexal masses. FREE FLUID: None. OTHER: No other significant finding. IMPRESSION: Living intrauterine of 7 weeks 0 days. Apparent subchorionic bleed. A heart flicker with seen at a rate of 87. Follow-up as clinically indicated. Trimester of : First trimester - 0 to 13 weeks. TECHNICAL DOCUMENTATION: JOB ID: [id number] 2010 [employer]- All Rights Reserved rev-07/11 Reading location - IP/workstation name: [email or web address]
== END ==
LOC: RAD 12:57
PROVIDERS: ATTEND Nurse Practitioner Family
DX: Z34.81 Encounter for supervision of other normal pregnancy, first trimester (principal)
CPT/HCPCS: 76801

== ENCOUNTER 2019-11-14 10:12 | Emergency (ER) | payer MEDICAID ==
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
[2019-11-14 11:14] LABS: ABSOLUTE EOSINOPHILS # (AUTO) 0.1 10^3/uL (0.0-0.6); ABSOLUTE LYMPHOCYTES (AUTO) 1.6 10^3/uL (0.5-4.7); ABSOLUTE MONOCYTES (AUTO) 0.1 10^3/uL (0.1-1.4); ABSOLUTE NEUT (AUTO) 4.9 10^3/uL (1.7-8.2); BASOPHILS % (AUTO) 0.4 % (0-2); EOSINOPHILS % (AUTO) 1.1 % (0-6); LYMPHOCYTES % (AUTO) 23.8 % (13-45); MEAN CORPUSCULAR HEMOGLOBIN 28.3 pg (27.0-33.4); MEAN CORPUSCULAR HGB CONC 33.4 g/dL (32.0-36.0); MEAN CORPUSCULAR VOLUME 85 fl (80-97); MONOCYTES % (AUTO) 2.2 % (3-13); PLATELET COUNT 255 10^3/uL (150-450); RED BLOOD COUNT 4.61 10^6/uL (3.72-5.28); SEGMENTED NEUTROPHILS % (AUTO) 72.5 % (42-78); TOTAL CELLS COUNTED % (AUTO) 100 %; WHITE BLOOD COUNT 6.7 10^3/uL (4.0-10.5)
[2019-11-14 11:36] LABS: ALBUMIN 4.2 g/dL (3.5-5.0); ALKALINE PHOSPHATASE 58 U/L (38-126); ANION GAP 7 (5-19); ASPARTATE AMINO TRANSFERASE 12 U/L (14-36); BILIRUBIN,DIRECT 0.2 mg/dL (0.0-0.4); BILIRUBIN,TOTAL 0.4 mg/dL (0.2-1.3); BLOOD UREA NITROGEN 8 mg/dL (7-20); CALCIUM 9.3 mg/dL (8.4-10.2); CARBON DIOXIDE 25 mmol/L (22-30); CHLORIDE 107 mmol/L (98-107); GLUCOSE 114 mg/dL (75-110); POTASSIUM 4.1 mmol/L (3.6-5.0)
--- NOTE | 2019-11-14 12:14 | RADIOLOGY REPORT (SQ) ---
EXAM DESCRIPTION: U/S [id number] TRNABD 1GES W/ODOP IMAGES COMPLETED DATE/TIME: 11/14/2019 10:28 am REASON FOR STUDY: Supposed to be 12 to 15 weeks bleed. COMPARISON: Obstetric ultrasound 10/12/2019 TECHNIQUE: Abdominal static and realtime grayscale images acquired of the pelvis. Additional selecte d spectral and color Doppler images recorded. All images stored on PACs. bHCG: Pending CLINICAL DATES: 1st trimester ultrasound performed 10/12/2019 demonstrated intrauterine gestation of 7 weeks gestational age. Currently patient should be at 11 weeks 5 days gestational age. Establishe d due date 05/30/2020 LIMITATIONS: None. FINDINGS: FETUS: There is an intrauterine gestational sac with yolk sac and pole. [place]-rump length measures 2.0 cm, consistent with a gestational age of 8 weeks 3 days. No heart tones a re obtained. SURVEY: No visualized anomalies. AMNIOTIC FLUID: Adequate amount. PLACENTA: Not yet developed due to early gestation. SUBCHORIONIC BLEED: None SIZE OF BLEED: Not applicable. UTERUS: No masses. No anomalies. CERVICAL LENGTH: 3 cm Closed. RIGHT ADNEXA: Normal ovary with normal vascular flow. No adnexal free fluid. No adnexal masses. LEFT ADNEXA: Normal ovary with normal vascular flow. No adnexal free fluid. No adnexal masses. Left corpus luteum follicle. FREE FLUID: None. OTHER: No other significant finding. IMPRESSION: Since the previous examination dated 10/12/2019, there is been minimal interval growth. No heart tones are obtained at today's exam. Findings are consistent with impending miscarriag e. The cervix is closed. COMMENT: Findings were discussed with Leora Munoz on 11/14/2019 at 1207 hours. TECHNICAL DOCUMENTATION: JOB ID: [id number] 2010 [employer]- All Rights Reserved rev Reading location - IP/workstation name: [email or web address]
--- NOTE | 2019-11-14 13:44 | ER Document Report ---
ED GI/ - General Chief Complaint: Vag Bleeding, +preg <12wks Stated Complaint: VAGINAL BLEEDING 12WKS PREG Time Seen by Provider: 11/14/19 10:48 Primary Care Provider: AICHA WALLACE MD [ACTIVE PROVISIONAL STAFF] - Follow up as needed Mode of Arrival: Wheelchair Information source: Patient Notes: 24-year-old female presented to ED for complaint of pelvic pain vaginal bleeding. She supposed to be 15 weeks . She states that she did have an abnormal ultrasound about a month ago. She did not have any follow-up after this. She did not have repeat labs drawn until last week. She states last week she had a quantitative hCG of 70. She is a G4, P3. She states her bleeding is mild to moderate, she states she is changing a pad every 3-4 hours. TRAVEL OUTSIDE OF THE [place] IN LAST 30 DAYS: No - Related Data Allergies/Adverse Reactions: No Known Allergies Allergy (Verified 11/14/19 10:48) Past Medical History - General Information source: Patient - Social History Smoking Status: Unknown if Ever Smoked Family History: Reviewed & Not Pertinent Renal/ Medical History: Denies: Hx Peritoneal Dialysis - Immunizations Hx Diphtheria, Pertussis, Tetanus Vaccination: Yes Review of Systems - Review of Systems Constitutional: No symptoms reported EENT: No symptoms reported Cardiovascular: No symptoms reported Respiratory: No symptoms reported Gastrointestinal: No symptoms reported Genitourinary: No symptoms reported Female Genitourinary: Vaginal bleeding Musculoskeletal: No symptoms reported Skin: No symptoms reported Hematologic/Lymphatic: No symptoms reported Neurological/Psychological: No symptoms reported Physical Exam - Vital signs Vitals: Temp Pulse Resp BP Pulse Ox 98.7 F 95 20 124/81 97 11/14/19 10:38 11/14/19 10:38 11/14/19 10:38 11/14/19 10:38 11/14/19 10:38 - Notes Notes: PHYSICAL EXAMINATION: GENERAL: Well-appearing, well-nourished and in no acute distress. HEAD: Atraumatic, normocephalic. EYES: Pupils equal round and reactive to light, extraocular movements intact, conjunctiva are normal. ENT: Nares patent, oropharynx clear without exudates. Moist mucous membranes. NECK: Normal range of motion, supple without lymphadenopathy LUNGS: Breath sounds clear to auscultation bilaterally and equal. No wheezes rales or rhonchi. HEART: Regular rate and rhythm without murmurs ABDOMEN: Soft, nontender, nondistended abdomen. No guarding, no rebound. No masses appreciated. Female : Refused Musculoskeletal: Normal range of motion, no pitting or edema. No cyanosis. NEUROLOGICAL: Cranial nerves grossly intact. Normal speech, normal gait. Normal sensory, motor exams PSYCH: Tearful. SKIN: Warm, Dry, normal turgor, no rashes or lesions noted. Course - Re-evaluation Re-evalutation: Obstetrics Ultrasound 11/14/19 10:51 IMPRESSION: Since the previous examination dated 10/12/2019, there is been minimal interval growth. No heart tones are obtained at today's exam. Findings are consistent with impending miscarriage. The cervix is closed. Laboratory 11/14/19 11/14/19 11/14/19 10:55 10:55 10:55 WBC 6.7 RBC 4.61 Hgb 13.0 Hct 39.0 MCV 85 MCH 28.3 MCHC 33.4 RDW 14.0 Plt Count 255 Lymph % (Auto) 23.8 [place] % (Auto) 2.2 L Eos % (Auto) 1.1 Baso % (Auto) 0.4 Absolute Neuts (auto) 4.9 Absolute Lymphs (auto) 1.6 Absolute Monos (auto) 0.1 Absolute Eos (auto) 0.1 Absolute Basos (auto) 0.0 Seg Neutrophils % 72.5 Sodium 138.9 Potassium 4.1 Chloride 107 Carbon Dioxide 25 Anion Gap 7 BUN 8 Creatinine 0.57 Est GFR ( Amer) > 60 Est GFR (MDRD) Non-Af > 60 Glucose 114 H Calcium 9.3 Total Bilirubin 0.4 Direct Bilirubin 0.2 Neonat Total Bilirubin Not Reportable Neonat Direct Bilirubin Not Reportable Neonat Indirect Bili Not Reportable AST 12 L ALT 9 Alkaline Phosphatase 58 Total Protein 7.0 Albumin 4.2 Lipase 49.7 Beta HCG, Quant 4531.80 H Total Beta HCG POSITIVE Urine Color Urine Appearance Urine pH Ur Specific [place] Urine Protein Urine Glucose (UA) Urine Ketones Urine Blood Urine Nitrite Urine Bilirubin Urine Urobilinogen Ur Leukocyte Esterase Urine WBC (Auto) Urine RBC (Auto) Urine Bacteria (Auto) Squamous Epi Cells Auto Urine Mucus (Auto) Urine Ascorbic Acid Blood Type O NEGATIVE Rhogam Indicated RHOGAM NOT REQUESTED 11/14/19 13:20 WBC RBC Hgb Hct MCV MCH MCHC RDW Plt Count Lymph % (Auto) [place] % (Auto) Eos % (Auto) Baso % (Auto) Absolute Neuts (auto) Absolute Lymphs (auto) Absolute Monos (auto) Absolute Eos (auto) Absolute Basos (auto) Seg Neutrophils % Sodium Potassium Chloride Carbon Dioxide Anion Gap BUN Creatinine Est GFR ( Amer) Est GFR (MDRD) Non-Af Glucose Calcium Total Bilirubin Direct Bilirubin Neonat Total Bilirubin Neonat Direct Bilirubin Neonat Indirect Bili AST ALT Alkaline Phosphatase Total Protein Albumin Lipase Beta HCG, Quant Total Beta HCG Urine Color YELLOW Urine Appearance SLIGHTLY-CLOUDY Urine pH 6.0 Ur Specific [place] 1.008 Urine Protein NEGATIVE Urine Glucose (UA) NEGATIVE Urine Ketones NEGATIVE Urine Blood LARGE H Urine Nitrite NEGATIVE Urine Bilirubin NEGATIVE Urine Urobilinogen NEGATIVE Ur Leukocyte Esterase SMALL H Urine WBC (Auto) 6 Urine RBC (Auto) 4 Urine Bacteria (Auto) TRACE Squamous Epi Cells Auto 8 Urine Mucus (Auto) RARE Urine Ascorbic Acid NEGATIVE Blood Type Rhogam Indicated There is an ultrasound on file from 32 days ago, at that time she was measuring 7 weeks and had an intrauterine with a heartbeat. Now the intrauterine sizing is consistent with 8 weeks, there is no heart tones. Her laboratory investigations are supportive of this, see trend of quantitative hCGs. Patient declines pelvic exam, states she wants to go home. She also declined the RhoGam injection. She also declined the offer of giving her a dose of Cytotec. Patient very emotional. We will give her some time. I reevaluated the patient, patient continues to states she wants to go home does not want any further work-up. ED return precautions were discussed. - Vital Signs Vital signs: Temp Pulse Resp BP Pulse Ox 98.1 F 90 20 129/84 H 100 11/14/19 13:06 11/14/19 14:01 11/14/19 10:38 11/14/19 14:01 11/14/19 14:01 - Laboratory Result Diagrams: 11/14/19 10:55 11/14/19 10:55 Laboratory results interpreted by me: 11/14/19 11/14/19 11/14/19 10:55 10:55 13:20 [place] % (Auto) 2.2 L Glucose 114 H AST 12 L Beta HCG, Quant 4531.80 H Urine Blood LARGE H Ur Leukocyte Esterase SMALL H Discharge - Discharge Clinical Impression: Incomplete miscarriage Condition: Stable Disposition: HOME, SELF-CARE Additional Instructions: Miscarriage Impending You have been evaluated for a possible miscarriage. At this time, it appears that the fetus has stopped growing. A miscarriage occurs when the fetus is abnormal. There is no medicine or treatment to prevent it. If bleeding is not severe, and if your pain can be controlled with medicine, you could complete the miscarriage at home. If that's not practical, or if the miscarriage doesn't progress spontaneously, we will arrange for a D&C procedure. You should rest in bed. Do not douche or have sex for at least a week, or until OK'd by the doctor. If you believe you've passed the fetus, collect it in a zip-lock plastic bag. Be sure to follow up with your doctor. Call the doctor or return for re- examination if there is an increase in bleeding or cramping, extreme weakness, fainting, fever, or passage of tissue. Prescriptions: Hydrocodone/Acetaminophen [Tofte 5-325 mg Tablet] 1 tab PO Q6HP PRN #12 tablet PRN Reason: Ibuprofen [Motrin 800 mg Tablet] 800 mg PO TID #30 tablet Referrals: AICHA WALLACE MD [ACTIVE PROVISIONAL STAFF] - Follow up as needed
[2019-11-14 14:03] VITALS: BP 129/84
[2019-11-14 14:07] LABS: APPEARANCE,URINE SLIGHTLY-CLOUDY; BILIRUBIN,URINE NEGATIVE (NEGATIVE); COLOR,URINE YELLOW; GLUCOSE, URINE NEGATIVE (NEGATIVE); KETONES,URINE NEGATIVE (NEGATIVE); LEUKOCYTE ESTERASE,URINE SMALL (NEGATIVE); NITRITE,URINE NEGATIVE (NEGATIVE); PROTEIN,URINE NEGATIVE (NEGATIVE); URINE SPECIFIC GRAVITY 1.008; UROBILINOGEN,URINE NEGATIVE mg/dL (<2.0)
== END 2019-11-14 14:10 | disposition home or self-care (01) ==
LOC: ER 10:12
DX: O03.4 Incomplete spontaneous abortion without complication (principal); R10.2 Pelvic and perineal pain
CPT/HCPCS: 36415; 76801; 80053; 81001; 83690; 84702; 85025; 86900; 86901; 87086; 99284

== ENCOUNTER 2019-11-22 17:41 | Emergency (ER) | payer MEDICAID ==
[2019-11-22] MEDS ORDERED: MORPHINE SULFATE 10 MG/ML INJ IM ONE (17:51)
--- NOTE | 2019-11-22 17:53 | ER Document Report ---
ED Medical Screen (RME) - General Chief Complaint: Vag Bleeding, +preg <12wks Stated Complaint: VAGINAL BLEEDING Time Seen by Provider: 11/22/19 17:47 Notes: Patient is a 24-year-old female who presents emergency department with a chief complaint of pelvic pain and bleeding. Patient states that she was seen here in the emergency department 8 days ago and has not stopped bleeding. Patient states that she had a miscarriage. Patient has been taking [place] and ibuprofen at home with little effect for pain. Patient's significant other states that she has been going through multiple pads due to the bleeding. This was her fourth . She has 3 children at home. Exam: Patient doubled over and crying. Tenderness to mid lower abdomen. I have greeted and performed a rapid initial assessment of this patient. A comprehensive ED assessment and evaluation of the patient, analysis of test results and completion of medical decision making process will be conducted by an additional ED providers. TRAVEL OUTSIDE OF THE [place] IN LAST 30 DAYS: No - Related Data Allergies/Adverse Reactions: No Known Allergies Allergy (Verified 11/22/19 17:47) Past Medical History Renal/ Medical History: Denies: Hx Peritoneal Dialysis - Immunizations Hx Diphtheria, Pertussis, Tetanus Vaccination: Yes Physical Exam - Vital signs Vitals: Temp Pulse Resp BP Pulse Ox 98.0 F 94 20 106/82 98 11/22/19 17:47 11/22/19 17:47 11/22/19 17:47 11/22/19 17:47 11/22/19 17:47 Course - Vital Signs Vital signs: Temp Pulse Resp BP Pulse Ox 98.0 F 94 20 106/82 98 11/22/19 17:47 11/22/19 17:47 11/22/19 17:47 11/22/19 17:47 11/22/19 17:47
--- NOTE | 2019-11-22 18:44 | RADIOLOGY REPORT (SQ) ---
EXAM DESCRIPTION: U/S NON OB PEL W/DOPPLER IMAGES COMPLETED DATE/TIME: 11/22/2019 6:27 pm REASON FOR STUDY: miscarriage 8 days ago; pelvic pain COMPARISON: None. TECHNIQUE: Dynamic and static grayscale images acquired of the pelvis via transabdominal approach an d recorded on PACS. Additional selected color Doppler and spectral images recorded. LIMITATIONS: None. FINDINGS: UTERUS: Contour normal. No mass. ENDOMETRIAL STRIPE: Thickened, heterogeneous. CERVIX: There is complex area within the cervix measuring 5.2 x 4.8 x 3.3 cm. Possible products of c onception. RIGHT OVARY AND DOPPLER: Normal size. No worrisome masses. Normal arterial vascular flow without evid ence for torsion. LEFT OVARY AND DOPPLER: Normal size. No worrisome masses. Normal arterial vascular flow without evide nce for torsion. 2.4 cm corpus luteum. FREE FLUID: None noted. OTHER: No other significant finding. MEASUREMENTS: UTERUS: 11.6 x 6.9 x 6.4 cm. ENDOMETRIAL STRIPE: 1.5 cm. RIGHT OVARY: 3.1 x 1.8 x 1.6 cm. LEFT OVARY: 4.1 x 3.6 x 2.4 cm. IMPRESSION: There is a complex area within the cervix as described. This likely represents products of conception. TECHNICAL DOCUMENTATION: JOB ID: [id number] 2010 [employer]- All Rights Reserved Rev Reading location - IP/workstation name: [email or web address]
[2019-11-22 19:17] LABS: ABSOLUTE EOSINOPHILS # (AUTO) 0.1 10^3/uL (0.0-0.6); ABSOLUTE LYMPHOCYTES (AUTO) 1.8 10^3/uL (0.5-4.7); ABSOLUTE MONOCYTES (AUTO) 0.3 10^3/uL (0.1-1.4); ABSOLUTE NEUT (AUTO) 6.5 10^3/uL (1.7-8.2); BASOPHILS % (AUTO) 0.4 % (0-2); EOSINOPHILS % (AUTO) 0.8 % (0-6); HEMATOCRIT 36.4 % (36.0-47.0); HEMOGLOBIN 12.4 g/dL (12.0-15.5); LYMPHOCYTES % (AUTO) 20.2 % (13-45); MEAN CORPUSCULAR HEMOGLOBIN 28.5 pg (27.0-33.4); MEAN CORPUSCULAR VOLUME 84 fl (80-97); MONOCYTES % (AUTO) 3.8 % (3-13); PLATELET COUNT 309 10^3/uL (150-450); RED BLOOD COUNT 4.34 10^6/uL (3.72-5.28); SEGMENTED NEUTROPHILS % (AUTO) 74.8 % (42-78); TOTAL CELLS COUNTED % (AUTO) 100 %; WHITE BLOOD COUNT 8.7 10^3/uL (4.0-10.5)
[2019-11-22 19:35] LABS: ALBUMIN 4.3 g/dL (3.5-5.0); ALKALINE PHOSPHATASE 64 U/L (38-126); ANION GAP 8 (5-19); ASPARTATE AMINO TRANSFERASE 14 U/L (14-36); BILIRUBIN,DIRECT 0.2 mg/dL (0.0-0.4); BILIRUBIN,TOTAL 0.4 mg/dL (0.2-1.3); BLOOD UREA NITROGEN 11 mg/dL (7-20); CALCIUM 9.5 mg/dL (8.4-10.2); CARBON DIOXIDE 23 mmol/L (22-30); CHLORIDE 107 mmol/L (98-107); GLUCOSE 117 mg/dL (75-110); POTASSIUM 4.3 mmol/L (3.6-5.0)
[2019-11-22 19:45] LABS: APPEARANCE,URINE CLEAR; BILIRUBIN,URINE NEGATIVE (NEGATIVE); COLOR,URINE RED; GLUCOSE, URINE 50 mg/dL (NEGATIVE); KETONES,URINE NEGATIVE (NEGATIVE); LEUKOCYTE ESTERASE,URINE NEGATIVE (NEGATIVE); NITRITE,URINE NEGATIVE (NEGATIVE); PROTEIN,URINE 100 mg/dL (NEGATIVE); URINE SPECIFIC GRAVITY 1.013; UROBILINOGEN,URINE NEGATIVE mg/dL (<2.0)
[2019-11-22] MEDS ORDERED: OXYCODONE-ACETAMINOPHEN 5-325 MG TABLET PO ONE (21:29)
--- NOTE | 2019-11-22 21:34 | ER Document Report ---
ED GI/ - General Chief Complaint: Vaginal Bleeding Stated Complaint: VAGINAL BLEEDING Time Seen by Provider: 11/22/19 17:47 Notes: CHIEF COMPLAINT: Miscarriage HPI: 24-year-old female presenting for vaginal bleeding in the setting of . Patient states she was seen last for possibility of a miscarriage as she started to have some cramping and bleeding states it eased off a became much worse again today with more bleeding and more significant pain. [facility] care. Patient sta adela that while she was an ultrasound here she did pass a large amount of tissue and states that the pain has eased off significantly. ROS: See HPI - all other systems were reviewed and are otherwise negative Constitutional: no fever or recent illness Resp: no SOB GI: no vomiting, no diarrhea : no dysuria, no vaginal discharge, positive bleeding vaginal Integumentary: no rash Allergy: no hives MEDICATIONS: I agree with the patient medications as charted by the RN. ALLERGIES: I agree with the allergies as charted by the RN. PAST MEDICAL HISTORY/PAST SURGICAL HISTORY: Reviewed and agree as charted by RN. SOCIAL HISTORY: Reviewed and agree as charted by RN. FAMILY HISTORY: No significant familial comorbid conditions directly related to patient complaint EXAM: Reviewed vital signs as charted by RN. CONSTITUTIONAL: Alert and oriented and responds appropriately to questions. Well-appearing; well-nourished HEAD: Normocephalic; atraumatic EYES: PERRL; Conjunctivae clear, sclerae non-icteric ENT: normal nose; no rhinorrhea; moist mucous membranes; pharynx without lesions noted NECK: Supple without meningismus CARD: RRR; no murmurs, no clicks, no rubs, no gallops; symmetric distal pulses RESP: Normal chest excursion without splinting or tachypnea; breath sounds clear and equal bilaterally; no wheezes, no rhonchi, no rales, pulse oximetry 98% on room air not hypoxic ABD/GI: Normal bowel sounds; non-distended; soft, mild tenderness across the suprapubic region on palpation, no rebound, no guarding; no palpable organomegaly or masses : Female nurse soda flaker present. External genitalia normal. No skin lesions noted. Pelvic Exam: Moderate dark red blood in the vaginal vault but no visible active bleeding. No purulent discharge. Cervical Os open to 2 fingers. No CMT. No lesions or masses. Uterus slightly enlarged and non tender. Right/Left adnexa normal size and non tender. BACK: The back appears normal and is non-tender to palpation, there is no CVA tenderness EXT: Normal ROM in all joints; no cyanosis, no effusions, no edema SKIN: Normal color for age and race; warm; dry; good turgor; no acute lesions noted NEURO: Moves all extremities equally; Motor and sensory function intact PSYCH: The patient's mood and manner are appropriate. Grooming and personal hy giene are appropriate. MDM: 24-year-old female presenting for probable miscarriage. Beta-hCG from a week ago has dropped several thousand. She had more significant bleeding today and states she passed a large amount of tissue in the bathroom and an ultrasound which was sent apparently for pathology. Patient's lab work does not show significant abnormalities. Patient apparently received RhoGam last week. Will perform pelvic exam to assess bleeding and cervix and then will discuss with [facility] regarding further management plan. TRAVEL OUTSIDE OF THE [place] IN LAST 30 DAYS: No - Related Data Allergies/Adverse Reactions: No Known Allergies Allergy (Verified 11/22/19 17:47) Past Medical History - Social History Smoking Status: Unknown if Ever Smoked Family History: Reviewed & Not Pertinent Patient has homicidal ideation: No Renal/ Medical History: Denies: Hx Peritoneal Dialysis - Immunizations Hx Diphtheria, Pertussis, Tetanus Vaccination: Yes Physical Exam - Vital signs Vitals: Temp Pulse Resp BP Pulse Ox 98.0 F 94 20 106/82 98 11/22/19 17:47 11/22/19 17:47 11/22/19 17:47 11/22/19 17:47 11/22/19 17:47 Course - Re-evaluation Re-evalutation: 11/22/19 22:06 Cervix was slightly open small amount of active dark blood but no hemorrhaging. Discussed with Dr. Nico Quiroz [facility], patient may follow-up in office bleeding precautions discussed at length with the patient 11/22/19 22:06 Patient indicates she has an appointment on November 29 with [facility] for follow-up already - Vital Signs Vital signs: Temp Pulse Resp BP Pulse Ox 98.0 F 94 20 106/82 98 11/22/19 17:47 11/22/19 17:47 11/22/19 17:47 11/22/19 17:47 11/22/19 17:47 - Laboratory Result Diagrams: 11/22/19 18:30 11/22/19 18:30 Laboratory results interpreted by me: 11/22/19 11/22/19 18:29 18:30 Glucose 117 H Beta HCG, Quant 847.02 H Urine Protein 100 H Urine Glucose (UA) 50 H Urine Blood LARGE H Discharge - Discharge Clinical Impression: Miscarriage Condition: Stable Disposition: HOME, SELF-CARE Instructions: Miscarriage (OM) Additional Instructions: Follow-up with [facility] for further evaluation and treatment as scheduled. If you have worsened bleeding we are saturating greater than 2 pads per hour for 2 consecutive hours return to the emergency department for reevaluation. Nothing by vagina for 2 weeks. Prescriptions: Oxycodone HCl/Acetaminophen [Percocet 5-325 mg Tablet] 1 tab PO Q4HP PRN #15 tab PRN Reason: Referrals: MAXWELL QUIROZ MD [ACTIVE STAFF] - Follow up as needed
[2019-11-22 22:38] VITALS: BP 125/80
== END 2019-11-22 22:39 | disposition home or self-care (01) ==
LOC: ER 17:41
DX: O03.9 Complete or unspecified spontaneous abortion without complication (principal); R10.2 Pelvic and perineal pain
CPT/HCPCS: 99285; 96372; 86900; 86901; 36415; 86870; 86850; 84702; 83690; 85025; 80053; 81001; 88305 ×2; 76856; 93976; J2270